=== PATIENT | male | born 1950 | race Caucasian/White ===

== ENCOUNTER 2022-02-18 20:30 | Emergency (ER) | payer MEDICARE ==
[2022-02-18] MEDS ORDERED: BACITRACIN OINT 1 EACH PACKET TOPICAL ONE (21:37)
--- NOTE | 2022-02-18 22:11 | CT ---
EXAMINATION TYPE: CT brain cspine wo con CT DLP: 1416.6 mGycm, Automated exposure control for dose reduction was used. DATE OF EXAM: 02/18/2022 10:01 PM COMPARISON: None.. CLINICAL INDICATION:Male, 71 years old with history of head injury s/p fall; Head injury, pt fall, no LOC TECHNIQUE: Brain: Multiple axial CT images of the brain were obtained without IV contrast. Cspine: Axial CT images from the skull base to the inferior aspect of T2 we obtained without intraven ous contrast. Coronal and sagittal reformatted images were also reviewed. FINDINGS: Brain: Extra-axial spaces: No abnormal extra-axial fluid collections. Ventricular system: Within normal limits Cerebral parenchyma: No acute intraparenchymal hemorrhage or mass effect. The osullivan-white junction is well differentiated. Cerebellum: Unremarkable. Mass effect: No evidence of midline shift. Intracranial vasculature: Atherosclerotic calcifications of the intracranial vessels. Soft tissues: Right frontal soft tissue edema/hematoma measuring up to 35 x 5 mm. Calvarium/osseous structures: No depressed skull fracture. Paranasal sinuses and mastoid air cells: Mild scattered mucosal thickening and or secretions. Visualized orbits: Right aphakia Cervical spine: Fracture: None. Osseous structures: Multilevel degenerative disc disease changes with endplate spurring and disc oste ophyte complex's. Vertebral alignment: Within normal limits. Spinal canal/Neural Foramina: No evidence of significant spinal canal narrowing. Facet joint uncovert ebral joint arthropathy scattered throughout the cervical spine with varying degrees of neural forami nal stenosis. Neck soft tissues: Prevertebral soft tissues are within normal limits. Other: The airway is patent. The lung apices are clear. Calcification of the nuchal ligament is prese nt. Atherosclerosis of the internal carotid arteries. IMPRESSION: 1. No acute intracranial process. 2. Right frontal soft tissue hematoma/edema. 3. No evidence of cervical spine fracture. 4. Moderate multilevel degenerative disc disease. 5. Atherosclerosis of the internal carotid arteries.
[2022-02-18 22:20] VITALS: BP 153/70; PULSE 75; RESP 15; TEMP 98.2
--- NOTE | 2022-02-18 22:35 | ED ---
General Adult HPI - General Chief complaint: Head Injury Stated complaint: Fell,Head Injury Time Seen by Provider: 02/18/22 21:09 Source: patient, family, RN notes reviewed Mode of arrival: wheelchair Limitations: no limitations - History of Present Illness Initial comments: 71-year-old male presents to the emergency department for evaluation of head in jury status post slip and fall. Patient states he was exiting his house onto his deck when he slipped going down 4 steps striking his head on concrete. Patient denies any loss of consciousness. States he was able to get himself up off the ground. expresses concern due to the size of the hematoma on his forehead. Patient reports a history of Parkinson's disease which does affect his gait and coordination; states she suspects his fall with the results of this. He denies any further injuries this time. No dizziness, headache, blurry vision, chest pain, rib pain, shortness of breath, abdominal pain, back pain, hip pain, or leg pain. - Related Data Home Medications Medication Instructions Recorded Confirmed Budesonide/Formoterol Fumarate 1 puff INHALATION RT-DAILY 10/20/17 10/26/17 [Symbicort 80-4.5 Mcg Inhaler] Carbidopa-Levodopa ER 50-200Mg 1 tab PO BID 10/20/17 10/26/17 [Sinemet ER 50-200] Cholecalciferol (Vitamin D3) 2,000 unit PO DAILY 10/20/17 10/26/17 [Vitamin D3] Fluticasone Nasal [place] [Flonase 2 spr EA NOSTRIL DAILY PRN 10/20/17 10/26/17 Nasal [place]] Loratadine [Claritin] 10 mg PO DAILY 10/20/17 10/26/17 [place]-3 Fatty Acids [[place]-3] 1,000 mg PO DAILY 10/20/17 10/26/17 amLODIPine BESYLATE/BENAZEPRIL 1 cap PO DAILY 10/20/17 10/26/17 [amLODIPine BESYLATE/BENAZEPRIL 10-20 mg] amantadine HCL [Symmetrel] 100 mg PO BID 10/20/17 10/26/17 Previous Rx's Medication Instructions Recorded Aspirin 325 mg PO BID #60 tab 10/27/17 Docusate [Colace] 100 mg PO DAILY #30 capsule 10/27/17 Famotidine [Pepcid] 20 mg PO DAILY #30 tablet 10/27/17 HYDROcodone/APAP 7.5-325MG [[place] 1 each PO Q6HR PRN #40 tab 10/27/17 7.5] traMADol HCl [Ultram] 50 mg PO Q6H PRN #40 tab 10/27/17 Allergies Allergy/AdvReac Type Severity Reaction Status Date / Time No Known Allergies Allergy Verified 02/18/22 20:37 Review of Systems ROS Statement: Those systems with pertinent positive or pertinent negative responses have been documented in the HPI. ROS Other: All systems not noted in ROS Statement are negative. Past Medical History Past Medical History: COPD, Hypertension, Neurologic Disorder, Osteoarthritis (OA) Additional Past Medical History / Comment(s): Parkinson's-tremors left side History of Any Multi-Drug Resistant Organisms: None Reported Past Surgical History: Orthopedic Surgery Additional Past Surgical History / Comment(s): arthroscopy knee,colonoscopies, TOTAL RIGHT KNEE ARTHROPLASTY Past Anesthesia/Blood Transfusion Reactions: No Reported Reaction Past Psychological History: No Psychological Hx Reported Smoking Status: Never smoker Past Alcohol Use History: Occasional Past Drug Use History: None Reported - Past Family History Father Family Medical History: Cancer General Exam Limitations: no limitations (Well-developed, well-nourished male in no acute distress. Initial temperature 98.6, pulse 83, respirations 18, blood pressure 158/84, pulse ox 98% on room air.) General appearance: alert, in no apparent distress Expanded Head exam: Present: abrasion (Superficial abrasion over the right frontal area.Cleansed prior to arrival.), hematoma (Hematoma on the right frontal/ parietal portion of the scalp. Spouse applied ice prior to arrival and reports significant reduction in size.). Absent: raccoon eyes, nicolas's sign Eye exam: Present: normal appearance, PERRL, EOMI. Absent: scleral icterus, conjunctival injection, periorbital swelling, periorbital tenderness Pupils: Present: normal accommodation Neck exam: Present: normal inspection, full ROM. Absent: tenderness, meningismus, lymphadenopathy Respiratory exam: Present: normal lung sounds bilaterally. Absent: respiratory distress, wheezes, rales, rhonchi, stridor, chest wall tenderness Cardiovascular Exam: Present: regular rate, normal rhythm, normal heart sounds. Absent: systolic murmur, diastolic murmur, rubs, gallop, clicks GI/Abdominal exam: Present: soft, normal bowel sounds. Absent: distended, tenderness, guarding, rebound, rigid Back exam: Present: normal inspection. Absent: paraspinal tenderness, vertebral tenderness Neurological exam: Present: alert, oriented X3, normal gait Psychiatric exam: Present: normal affect, normal mood Skin exam: Present: warm, dry Course Vital Signs 02/18/22 02/18/22 20:34 22:18 Temperature 98.6 F 98.2 F Pulse Rate 83 75 Respiratory 18 15 Rate Blood Pressure 158/84 153/70 O2 Sat by Pulse 98 95 Oximetry - Reevaluation(s) Reevaluation #1: 02/18/22 22:30 Patient continues to rest comfortably with no complaints at this time. Denies any need for anything for pain. Updated on CT results. Discussed discharge home. Patient is agreeable with this plan of care. Medical Decision Making - Medical Decision Making This is a pleasant 71-year-old male with a past medical history of Parkinson's disease presenting to the emergency department for evaluation of injury to the head status post fall around 7 PM this evening. Upon exam, patient is well- appearing and in no acute distress. He is awake, alert, oriented. He complains of minimal discomfort associated with fall. He does have a hematoma to the right frontal/parietal area of his scalp with a superficial abrasion. Patient's spouse cleansed prior to arrival and applied ice. She states that it size of the hematoma has reduced significantly. He does not take any blood thinning medications. Patient denied experiencing any loss of consciousness. Neurological assessment is baseline for patient. CT of the brain and C-spine was obtained and is unremarkable. Bacitracin was applied to the wound. Results were discussed with patient spouse. They are agreeable with discharge home to follow up with primary care as needed. Return parameters were discussed in detail. Patient and spouse verbalized understanding and agreed with this plan. Attending: Talita - Radiology Data Radiology results: report reviewed, image reviewed CT of the brain and C-spine without contrast was obtained. Report was reviewed in its entirety. Impression per Dr. Gupta is #1 no acute intracranial process. #2 right frontal soft tissue hematoma/edema. #3. No evidence of cervical spine fracture. #4. Moderate multilevel degenerative disc disease. #5. Atherosclerosis of the internal carotid arteries. Disposition Clinical Impression: Scalp hematoma, Scalp abrasion, non-infected, Fall Disposition: HOME SELF-CARE Condition: Stable Instructions (If sedation given, give patient instructions): Head Injury (ED), Abrasion (ED), Hematoma (ED) Additional Instructions: Apply Bacitracin to wound after gentle cleansing with mild soap and water once daily. Follow-up with your PCP for recheck in the next 1-2 days. Return to the emergency department with any new, worsening, or concerning symptoms. Is patient prescribed a controlled substance at d/c from ED?: No Referrals: Calvin Roca MD [Primary Care Provider] - 1-2 days Time of Disposition: 22:35
== END 2022-02-18 22:39 | disposition home or self-care (01) ==
LOC: EC 20:30
DX: S00.03XA Contusion of scalp, initial encounter (principal); S00.01XA Abrasion of scalp, initial encounter; J44.9 Chronic obstructive pulmonary disease, unspecified; I10 Essential (primary) hypertension; W01.0XXA Fall on same level from slipping, tripping and stumbling without subsequent striking against object, initial encounter; Y93.39 Activity, other involving climbing, rappelling and jumping off
CPT/HCPCS: 70450; 72125; 99283

== ENCOUNTER → 2022-06-20 | Outpatient (CLI) | payer MEDICARE | END | disposition home or self-care (01) | LOC: LABWHC1 15:52 | PROVIDERS: ATTEND Orthopaedic Surgery | DX: Z01.812 Encounter for preprocedural laboratory examination (principal); Z22.322 Carrier or suspected carrier of Methicillin resistant Staphylococcus aureus; M16.12 Unilateral primary osteoarthritis, left hip | CPT/HCPCS: 87070 ==

== ENCOUNTER 2022-06-30 10:50 | Day surgery (SDC) | payer MEDICARE ==
[2022-06-25 11:45] VITALS: BMI 20.9
--- NOTE | 2022-06-29 10:38 | HP ---
HISTORY AND PHYSICAL DATE OF SURGERY: 06/30/2022 Michael Estrella is a 71-year-old patient seen with symptomatic left hip osteoarthritis. We discussed options for treatment. He elected to proceed with left total hip arthroplasty. Consent was obtained. Medical clearance was provided by Dr. Calvin Roca. PAST MEDICAL HISTORY: Hypertension, asthma, COPD, Parkinson's. SURGICAL HISTORY: Knee arthroscopy. DAILY MEDICATIONS: Loratadine, amlodipine, levodopa, vitamins. ALLERGIES: NONE. SOCIAL HISTORY: He denies tobacco use. PHYSICAL EVALUATION OF THE LEFT HIP: There is very limited rotation with severe pain and diffuse tenderness. Positive hip impingement sign. Straight-leg raise negative. Distal neurovascular exam is intact. Radiographs of the left hip revealed severe osteoarthritic changes. IMPRESSION: 1. Left hip osteoarthritis. 2. Hypertension. 3. Parkinson's. PLAN: Direct anterior left total hip arthroplasty. MMODL / IJN: [id number] /
[~2022-06-30 10:50] MED LIST: ACETAMINOPHEN TAB 500 MG TAB PO PRN; LIDOCAINE 1% (10MG/ML) FOR IV START INTRADERMA PRN; MELOXICAM 7.5 MG TAB PO PRN; ONDANSETRON 4 MG/2 ML VIAL IVP ONE; TRANEXAMIC ACID IN NACL,ISO-OS 1,000 MG in SALINE 1 100ML.BAG IVPB PRN
[2022-06-30] MEDS: LACTATED RINGERS 1,000 ML IV SCH ×2 (11:39→17:25)
[2022-06-30] MEDS ORDERED: DEXAMETHASONE SOD PHOSPHATE 4 MG/ML 1 ML VIAL IV ONE (11:52)
[2022-06-30] MEDS ORDERED: MIDAZOLAM 2 MG/2 ML VIAL IV ONE (12:04)
[2022-06-30] MEDS ORDERED: fentaNYL (PF) 50 MCG/ML 2 ML AMP IV ONE (12:04)
--- NOTE | 2022-06-30 13:11 | P.ANPRN ---
Procedure Note - Anesthesia - Nerve Block Performed Left Erector Spinae Single Time Out Performed: Yes (1203) Date of Procedure: 06/30/22 Procedure Start Time: 12:04 Procedure Stop Time: 12:11 Location of Patient: PreOp Indication: Acute Post-Operative Pain, Requested by Surgeon Specifically requested for management of pain by : Washington Hines Sedation Type: Sedate with meaningful contact maintained Preparation: Sterile Prep Position: Sitting Catheter: None Needle Types: Pajunk Needle Gauge: 21 Ultrasound used to visualize needle placement: Yes Ultrasound used to observe medication spread: Yes Injectate: 0.5% Ropivacaine (see comment for volume) (30cc) Blood Aspirated: No Pain Paresthesia on Injection Noted: No Resistance on Injection: Normal Image Stored and Saved: Yes Events: Uneventful and Well Tolerated
--- NOTE | 2022-06-30 14:17 | P.OP ---
Date of Procedure: 06/30/22 Preoperative Diagnosis: Left hip osteoarthritis Postoperative Diagnosis: Left hip osteoarthritis Procedure(s) Performed: Direct anterior left total hip arthroplasty Implants: 1. Depuy Corail KLA size 12 high offset collar press-fit femoral stem 2. Depuy [place] 54 mm press-fit acetabular shell 3. Depuy [place]dermitt neutral-acetabular liner 36 mm ID 54 mm OD 4. Biolox Delta ceramic femoral head +1.5 36 mm Anesthesia: regional (Erector spinae block), spinal Surgeon: Washington Hines Butter Wrapper #1: Paul Jordan Estimated Blood Loss (ml): 110 Pathology: other (Femoral head) Condition: stable Disposition: PACU Indications for Procedure: 71-year-old patient seen with symptomatic left hip osteoarthritis. After treatment options were discussed, he elected to proceed with direct anterior left total hip arthroplasty. Operative Findings: See description of procedure Description of Procedure: The patient was taken to the operative suite after having an erector spinae block performed by the department of anesthesia for postoperative pain management. Patient underwent a spinal anesthetic by the department of anesthesia. Patient was then transferred to the [place] table. Patient was given preoperative IV antibiotics and TXA. Both lower extremities were placed in standard leg spars. The hip was then prepped and draped in the normal sterile orthopedic fashion. A standard anterior incision was made beginning 3 cm lateral and 1 cm distal to the ASIS extending 10 cm. Dissection was then carried down through the subcutaneous soft tissues down to the fascia overlying the tensor fascia silvana. An incision was now made through the fascia. Careful dissection was taken down exposing the tensor fascia silvana muscle. A Cobra retractor was now placed along the medial femoral neck and a second one along the lateral femoral neck. The venous circumflex vessels were now identified, cauterized and clipped. We identified the anterior hip capsule. An incision was made through the hip capsule along the lateral border. I performed a partial anterior capsulectomy. Retractors were now placed around the femoral neck itself. A femoral neck cut was now made with a sagittal saw. It was completed with an osteotome at the lateral neck area. The femoral head was now removed without difficulty. The extremity was now rotated to 60 of external rotation. It was locked in position. Residual labrum was now debrided out. Serial reaming was performed of the acetabulum while Jose Martin PRECIADO assisted holding an anterior retractor for exposure. Once we reached the appropriate size and a trial was position and fit nicely. The appropriate size was now chosen opened and made available. It was introduced into the acetabulum without difficulty. The C-arm/fluoroscopy was now brought into the operative field. We made sure we had a true AP pelvic view. We now under direct C-arm/fluoroscopy introduced into the acetabular component with appropriate version and in clination. I held the cup in appropriate position well Jose Martin PRECIADO used a mallet to seat the acetabular component. I noted the component now to be well seated and stable. Acetabular cup introduce her was removed. The C-arm was pulled back. An appropriate liner was introduced and clicked into position. It was felt to be stable. At this point retractors were removed. The extremity was now placed into 130 external rotation with no traction. The leg was now dropped to the ground and adducted. Appropriate retractors were now positioned along the proximal femur. We also placed our femoral look into position. Additional capsular releasing was performed to gain access to the proximal femur. We now used a box osteotome. A canal finder was now utilized. Serial broaching was now performed with the assistance of Jose Martin PRECIADO tapping the broaches down with a mallet while held the broach in appropriate rotation and position. This was done until we reached the appropriate size with good overall rotational stability. Appropriate calcar planing was performed. A trial head/neck was placed into position. The hip was now reduced. The C- arm/fluoroscopy was brought back into the operative field. I obtained an AP pelvis x-ray via fluoroscopy demonstrating adequate leg length alignment. The trial components appeared adequately sized and adequately positioned. The C-arm/fluoroscopy was pulled back. Retractors were repositioned and the hip was dislocated. The leg was again taken down to the ground and adducted. Appropriate retractors were repositioned as well as the femoral hook. All trial components were removed. The femoral implant was opened along with the femoral head. The femoral implant was introduced on the appropriate handle into our pre-broached area. I held the component position well Jose Martin PRECIADO used a mallet to seat the femoral component. The femoral component was now noted to be well seated and stable.. The femoral head was introduced with good positioning and fixation noted. Retractors were now removed. The hip was now reduced. There appeared be good positioning of the hip confirmed on intraoperative fluoroscopy. Spot films were obtained to document this. A second gram of TXA was given. The deep and superficial soft tissues were infiltrated with local analgesic. Bipolar cautery had been utilized intermittently through the procedure for hemostasis. The wound was irrigated copiously with pulse lavage mechanical irrigation. The fascia was repaired with Vicryl suture. The subcutaneous soft tissues were repaired in layers with Vicryl suture. The skin was approximated with pernio/Dermabond. Sterile dressings were applied. Patient was then awakened, transferred to a bed and taken to recovery in stable condition. Jose Martin PRECIADO assisted with the complex procedure.
[2022-06-30] MEDS ORDERED: HYDROcodone/APAP 5-325MG 1 EACH TAB PO PRN (14:18)
[2022-06-30] MEDS ORDERED: NALOXONE 0.4 MG/ML 1 ML VIAL IV PRN (14:18)
[2022-06-30] MEDS ORDERED: ONDANSETRON 4 MG/2 ML VIAL IVP PRN (14:18)
[2022-06-30] MEDS ORDERED: HYDROmorphone 0.5 MG/0.5 ML SYRINGE IVP PRN ×2 (14:18)
--- NOTE | 2022-06-30 14:22 | FL ---
EXAMINATION TYPE: FL guidance operating room, XR Hip Limited LT DATE OF EXAM: 06/30/2022 CLINICAL HISTORY: Left hip pain and advanced osteoarthritis. TECHNIQUE: Fluoroscopy. Limited intraoperative views left hip. COMPARISON: Outside left hip x-ray May 06, 2022 FINDINGS: Fluoroscopic guidance was provided during left hip replacement procedure performed by Dr. Hines. A total of 19 seconds of fluoroscopic time was utilized during the procedure and 2 spot i mages are acquired. Intraoperative images obtained show satisfactory position of metallic prosthesis on frontal projectio n. IMPRESSION: As Above.
[2022-06-30] MEDS: HYDROmorphone 0.5 MG/0.5 ML SYRINGE IVP PRN ×2 (15:01→16:06)
[2022-06-30] MEDS ORDERED: KETOROLAC 15 MG/ML 1 ML VIAL IVP ONE (15:02)
[2022-06-30] MEDS: HYDROcodone/APAP 7.5-325MG 1 EACH TAB PO PRN (17:25)
[2022-06-30] MEDS ORDERED: lisinopriL 10 MG TAB PO SCH (21:00)
[2022-06-30] MEDS ORDERED: amLODIPine 5 MG TAB PO SCH (21:00)
[2022-06-30] MEDS ORDERED: SENNOSIDES-DOCUSATE SODIUM 1 EACH TAB PO SCH (21:00)
[2022-06-30] MEDS: CARBIDOPA-LEVODOPA ER 50-200MG 1 EACH TABLET.ER PO SCH (21:03)
[2022-06-30] MEDS: ENTACAPONE 200 MG TAB PO SCH (21:03)
[2022-07-01] MEDS: HYDROmorphone 0.5 MG/0.5 ML SYRINGE IVP PRN ×2 (01:03→07:45)
[2022-07-01 03:26] VITALS: RESP 18
[2022-07-01] MEDS: HYDROcodone/APAP 7.5-325MG 1 EACH TAB PO PRN ×2 (04:38→11:04)
[2022-07-01] MEDS: LACTATED RINGERS 1,000 ML IV SCH ×2 (04:39→05:39)
[2022-07-01 07:54] VITALS: BP 111/61; PULSE 76; TEMP 97.4
[2022-07-01] MEDS ORDERED: ENOXAPARIN 40 MG/0.4 ML SYRINGE SQ SCH (09:00)
[2022-07-01] MEDS ORDERED: FAMOTIDINE 20 MG TAB PO SCH (09:00)
--- NOTE | 2022-07-01 09:41 | P.CONS ---
History of Present Illness - Reason for Consult Consult date: 07/01/22 parkinsons disease Requesting physician: Washington Hines - Chief Complaint hip pain - History of Present Illness Patient is a 71 yo CM with a hx of HTN, COPD, and parkinsons disease who presented for an elective left total hip arthroplasty. Patient seen and examined at bedside. He is doing well. He is already worked with therapy today. He denies any chest pain, shortness breath, lightheadedness, dizziness. He denies any cough, cold, fever, flu. He does have Parkinson's disease about 2 months ago. He follows with Dr. Mckeon and has had his Sinemet adjusted recently. He does continue to have a resting tremor, masked facies, and slowed response time with difficulty with dysdiadochokinesis. We had a long discussion that he will be at high risk for falls given his Parkinson's recent total hip arthroplasty. He does have grab bars on multiple doorways. I have suggested that he follow up with Dr. Roca as he is unable to get into Dr. Mckeon until 2 months from now. He may needed an extra dose of Sinemet daily. He states now he takes 1 tablet 3 times daily the first day and then takes 1 tablet twice daily the second day and then 2 tablets the last dose of the day. This means that he would be deficient in his Sinemet on alternate days. Could consider adjusting him to taking 1 tablet twice daily and then 2 tablets once daily on a more consistent basis an alternating regimen to every other day. Pertinent positives and negatives as discussed in HPI, a complete review of systems was performed and all other systems are negative. Vital signs reviewed General: nontoxic, no distress, appears at stated age Derm: warm, dry Head: atraumatic, normocephalic, symmetric Eyes: EOMI, no lid lag, anicteric sclera, pupils equal round reactive to light ENT: Nose and ears atraumatic, no thrush, no pharyngeal erythema Neck: No thyromegaly, no cervical lymphadenopathy, trachea midline, supple Mouth: no lip lesion, mucus membranes moist Cardiovascular: S1S2 reg, no murmur, positive posterior tibial pulse bilateral, no edema, capillary refill less than 2 seconds Lungs: clear to auscultation bilateral, no rhonchi, no rales, no wheeze, no accessory muscle use Abdominal: soft, nontender to palpation, no guarding, no appreciable organomegaly, normal bowel sounds Ext: no gross muscle atrophy, muscle strength muscle strength 5 out of 5 in all 4 extremities, no contractures Neuro: CN II-XII grossly intact, light touch intact all 4 extremities, finger to nose within normal, struggles with dysdiadokinesis on the left, resting tremor on the left, masked facies. Psych: Alert, oriented, appropriate affect Assessment/Plan: 71 yo M s/p Left TWILA Parkinsons Disease - fall precautions - sinement - entacapone COPD without exacerbation - symbicort - prn bronchdilators HTN - controlled - continue amlodipine and benzapril Medically optimized for discharge, home meds addressed. Thank you for allowing us to participate in the care of this pleasant patient. Do not hesitate to contact us with questions. Someone can be reached from the [facility] hospitalist group all hours of the day at [phone] or via [employer]. Past Medical History Past Medical History: COPD, Hearing Disorder / Deafness, Hypertension, Neurologic Disorder, Osteoarthritis (OA) Additional Past Medical History / Comment(s): Hard of hearing. Parkinson's- tremors left side. History of Any Multi-Drug Resistant Organisms: None Reported Past Surgical History: Joint Replacement, Orthopedic Surgery Additional Past Surgical History / Comment(s): Right knee arthroscopy, colonoscopies, total right knee replacement. Past Anesthesia/Blood Transfusion Reactions: No Reported Reaction Past Psychological History: No Psychological Hx Reported Smoking Status: Never smoker Past Alcohol Use History: Occasional Additional Past Alcohol Use History / Comment(s): 1 alcoholic drink per week. Past Drug Use History: None Reported - Past Family History Father Family Medical History: Cancer Medications and Allergies Home Medications Medication Instructions Recorded Confirmed Type Budesonide/Formoterol Fumarate 1 puff INHALATION 10/20/17 06/30/22 History [Symbicort 80-4.5 Mcg Inhaler] Carbidopa-Levodopa ER 50-200Mg 1 tab PO TID 10/20/17 06/30/22 History [Sinemet ER 50-200] Cholecalciferol (Vitamin D3) 2,000 unit PO DAILY 10/20/17 06/30/22 History [Vitamin D3] Fluticasone Nasal [place] [Flonase 2 spr EA NOSTRIL HS 10/20/17 06/30/22 History Nasal [place]] Loratadine [Claritin] 10 mg PO DAILY 10/20/17 06/30/22 History amantadine HCL [Symmetrel] 100 mg PO BID 10/20/17 06/30/22 History traMADol HCl [Ultram] 50 mg PO Q6H PRN #40 tab 10/27/17 06/30/22 Rx Acetaminophen Tab [Tylenol Tab] 500 - 1,000 mg PO DIRECTED PRN 06/25/22 06/30/22 History Entacapone 200 mg PO TID 06/25/22 06/30/22 History Thiamine [Vitamin B-1] 2,000 mg PO DAILY 06/25/22 06/30/22 History amLODIPine BESYLATE/BENAZEPRIL 1 cap PO HS 06/25/22 06/30/22 History [amLODIPine BESYLATE/BENAZEPRIL 5-10 mg] Allergies Allergy/AdvReac Type Severity Reaction Status Date / Time No Known Allergies Allergy Verified 06/30/22 11:09 Physical Exam Osteopathic Statement: *. No significant issues noted on an osteopathic structural exam other than those noted in the History and Physical/Consult. Vitals: Vital Signs Temp Pulse Pulse Resp BP Pulse Ox 07/01/22 07:52 97.4 F L 76 18 111/61 97 07/01/22 02:40 98.1 F 77 18 116/64 98 06/30/22 20:25 79 115/64 94 L 06/30/22 20:00 79 16 06/30/22 19:10 80 106/57 99 06/30/22 18:55 78 125/68 99 06/30/22 18:40 73 101/46 99 06/30/22 18:25 83 130/69 98 06/30/22 17:24 97.7 F 64 16 130/54 100 06/30/22 16:30 64 16 160/70 100 06/30/22 16:00 66 16 160/72 06/30/22 15:25 61 64 H 151/67 66 L 06/30/22 15:10 72 16 135/60 06/30/22 14:55 61 16 118/56 100 06/30/22 14:40 62 16 105/55 100 06/30/22 14:26 97.6 F 70 14 143/65 97 06/30/22 12:17 83 16 148/67 100 06/30/22 11:31 88 16 142/81 98 Intake and Output 06/30/22 07/01/22 07/01/22 22:59 06:59 14:59 Intake Total 500 Balance 500 Intake: IV 500 Other: Voiding Method Toilet # Voids 1 1 Weight 61.4 kg
[2022-07-01] MEDS: ENTACAPONE 200 MG TAB PO SCH (09:57)
[2022-07-01] MEDS: CARBIDOPA-LEVODOPA ER 50-200MG 1 EACH TABLET.ER PO SCH (09:57)
[2022-07-01 10:32] LABS: Basophils # (A) 0.01 X 10*3/uL (0.00-0.10); Basophils % (A) 0.2 %; Eosinophils # (A) 0.05 X 10*3/uL (0.04-0.35); Eosinophils % (A) 1.1 %; HCT 32.5 % (39.6-50.0); HGB 10.5 g/dL (13.0-17.0); Immature Grans, Automated 0.4 %; Lymphocytes # (A) 0.74 X 10*3/uL (0.90-5.00); Lymphocytes % (A) 16.3 %; MCHC 32.3 g/dL (32.0-37.0); MCV 92.9 fL (80.0-97.0); Mean Platelet Volume 9.3 fL (9.5-12.2); Monocytes # (A) 0.33 X 10*3/uL (0.20-1.00); Monocytes % (A) 7.3 %; NRBC Per 100 WBC 0 /100 WBCS (0.0-0.0); Neutrophils # (A) 3.38 X 10*3/uL (1.80-7.70); Neutrophils % (A) 74.7 %; Platelet Count 209 X 10*3/uL (140-440); RDW 12.3 % (11.5-14.5); WBC 4.53 X 10*3/uL (4.50-10.00)
--- NOTE | 2022-07-01 10:34 | P.PN ---
Subjective Progress Note Date: 07/01/22 Principal diagnosis: Status post direct anterior total hip arthroplasty Patient was evaluated at bedside today, he is resting in his hospital chair. Patient ambulating with physical therapy utilizing a walker. He states improvement in his overall symptoms of the left hip. He does have some generalized soreness. He denies any headaches, lightheadedness, shortness of breath, chest pain. He is urinating with no difficulties at this time Objective - Vital Signs Vital signs: Vital Signs Temp 97.4 F L 07/01/22 07:52 Pulse 76 07/01/22 07:52 Resp 18 07/01/22 07:52 BP 111/61 07/01/22 07:52 Pulse Ox 97 07/01/22 07:52 FiO2 Intake & Output 06/30/22 07/01/22 07/01/22 18:59 06:59 18:59 Intake Total 750 Output Total 110 Balance 640 Weight 61.4 kg Intake: IV 750 Output: Estimated Blood Loss 110 Other: Voiding Method Toilet # Voids 1 - Exam Left lower extremity: Incision is clean, dry, and intact. The foam dressings in good condition. [Sherrell is minimal soft tissue swelling and ecchymosis surrounding the medial and lateral aspects of the incision.] Calf is soft, no tenderness with palpation. Plantar flexion, dorsiflexion, EHL, FHL are intact. Sensory exam to light touch throughout the extremity is intact, [drsal pedis pulses 2+.] Assessment and Plan Assessment: Postoperative day #1 status post right anterior left total hip arthroplasty Plan: Pain control, plan for discharge home on [place] 7.5 mg/325 mg. Patient also has tramadol 50 mg at home. DVT prophylaxis, aspirin 81 mg twice a day for 30 days Wound care was discussed, this will include icing and elevating techniques along with showering Home physical therapy and nursing after discharge, instructed patient to utilize walker at all times with ambulation Medical recommendations Discharge planning: Patient stable for discharge home today Time with Patient: Less than 30
--- NOTE | 2022-07-01 10:34 | P.DS ---
Providers Date of admission: 06/30/2022 Expected date of discharge: 07/01/22 Attending physician: Washington Hines Consults: 06/30/22 14:18 Consult Physician Routine Consulting Provider: Puja De Luna Consult Reason/Comments: Medical management Do you want consulting provider notified?: Yes Primary care physician: Calvin Park [facility] Course: Date of admission: 06/30/2022 Date of discharge: 07/01/2022 Admission diagnosis: Status post direct anterior left total hip arthroplasty Discharge diagnosis: Same Attending physician: Dr. Hines Surgical procedures: Direct anterior left total hip arthroplasty Brief history: Patient is a 71-year-old male with a history of progressive primary left hip osteoarthritis. At this point patient has failed conservative treatment measures and has opted to proceed with a elective direct anterior left total hip arthroplasty. Hospital course: Details of patient's surgery can be found in operative report. Patient tolerated the procedure well and was subsequently transported to orthopedic floor. Patient's orthopeidc and medical care was provided daily. Patient had daily laboratory tests performed for evaluation of overall blood counts. Patient had daily physical therapy to include strengthening range of motion as well as education with walker ambulation. Patient was treated with Lovenox for their postoperative DVT prophylaxis during their inpatient stay. Patient was noted to have a relatively uneventful postoperative course. Patient reported satisfactory pain control with oral pain medications by postoperative day 0. Patient showed satisfactory progress with physical therapy. Patient moved steadily through the program and had no difficulty meeting the goals by postoperative day 1. Given patient's otherwise satisfactory course and having met physical therapy goals, plan is to discharge patient home on postoperative day 1. Discharge condition/disposition: Patient will be discharged home in stable c ondition. Discharge medications: Instructions are given on resumption of patient's normal daily medications per primary care recommendation, in addition patient will be prescribed [place] 7.5 mg/325 mg, aspirin. Discharge instructions: 1. Wound care and infection precautions, keep incision dry and covered while showering, no lotions, creams, moisturizers. No soaking, tubs, pools, hottubs. Do not scrub over the incision. 2. Weight-bear as tolerated with walker / cane until follow-up. 3. Ice and elevate when necessary. Do not exceed 20 minutes per hour with ice pack. 4. Utilize compression sleeve until seen at first follow up appointment. 5. Visiting nursing care. 6. Home physical therapy. 7. Pain meds and anticoagulants per prescription. 8. Pain medication has potential to cause constipation. Increase oral fluid and fiber intake. Contact primary care provider if you have not had a bowel movement within 48 hours after discharge 9. No anti-inflammatory medication until discussed at first post operative visit, this including Motrin, Aleve, Mobic, Diclofenac. 10. Follow up in office at 2 weeks postop with Jose Martin Jordan PA-C/Jignesh Medrano 11. Follow up with your primary care doctor 7-10 days after discharge. 12. Contact [facility] with any questions, . Procedures: Direct anterior left total hip arthroplasty Patient Condition at Discharge: Good Plan - Discharge Summary Discharge Rx Participant: No New Discharge Prescriptions: New Aspirin [Adult Low Dose Aspirin EC] 81 mg PO BID #60 tab HYDROcodone/APAP 7.5-325MG [[place] 7.5] 1 each PO Q6HR PRN #28 tab PRN Reason: Pain Continue Fluticasone Nasal Pike [Flonase Nasal Pike] 2 spr EA NOSTRIL HS Carbidopa-Levodopa ER 50-200Mg [Sinemet CR 50-200 mg] 1 tab PO TID Loratadine [Claritin] 10 mg PO DAILY amantadine HCL [Symmetrel] 100 mg PO BID Cholecalciferol (Vitamin D3) [Vitamin D3] 2,000 unit PO DAILY Budesonide/Formoterol Fumarate [Symbicort 80-4.5 Mcg Inhaler] 1 puff INHALATION HS amLODIPine BESYLATE/BENAZEPRIL [amLODIPine BESYLATE/BENAZEPRIL 5-10 mg] 1 cap PO HS Thiamine [Vitamin B-1] 2,000 mg PO DAILY Entacapone 200 mg PO TID No Action traMADol HCl [Ultram] 50 mg PO Q6H PRN #40 tab PRN Reason: Pain Acetaminophen Tab [Tylenol Tab] 500 - 1,000 mg PO DIRECTED PRN PRN Reason: Pain Discharge Medication List Budesonide/Formoterol Fumarate [Symbicort 80-4.5 Mcg Inhaler] 1 puff INHALATION HS 10/20/17 [History] Carbidopa-Levodopa ER 50-200Mg [Sinemet CR 50-200 mg] 1 tab PO TID 10/20/17 [History] Cholecalciferol (Vitamin D3) [Vitamin D3] 2,000 unit PO DAILY 10/20/17 [History] Fluticasone Nasal Pike [Flonase Nasal Pike] 2 spr EA NOSTRIL HS 10/20/17 [History] Loratadine [Claritin] 10 mg PO DAILY 10/20/17 [History] amantadine HCL [Symmetrel] 100 mg PO BID 10/20/17 [History] traMADol HCl [Ultram] 50 mg PO Q6H PRN #40 tab 10/27/17 [Rx] Acetaminophen Tab [Tylenol Tab] 500 - 1,000 mg PO DIRECTED PRN 06/25/22 [History] Entacapone 200 mg PO TID 06/25/22 [History] Thiamine [Vitamin B-1] 2,000 mg PO DAILY 06/25/22 [History] amLODIPine BESYLATE/BENAZEPRIL [amLODIPine BESYLATE/BENAZEPRIL 5-10 mg] 1 cap PO HS 06/25/22 [History] Aspirin [Adult Low Dose Aspirin EC] 81 mg PO BID #60 tab 07/01/22 [Rx] HYDROcodone/APAP 7.5-325MG [[place] 7.5] 1 each PO Q6HR PRN #28 tab 07/01/22 [Rx] Follow up Appointment(s)/Referral(s): Calvin Roca MD [Primary Care Provider] - 1 Week [facility], [NON-STAFF] - As Needed Paul Jordan PAC [PHYSICIAN OFFICE SERVICES ASSISTANT] - 2 Weeks Patient Instructions/Handouts: Total Hip Replacement (DC) Activity/Diet/Wound Care/Special Instructions: Orthopedic Discharge Instructions: 1. Wound care and infection precautions, keep incision dry and covered while showering, no lotions, creams, moisturizers. No soaking, pools, hot tubs. Do not scrub over incision. 2. Weight-bear as tolerated with walker / cane until follow-up. 3. Ice and elevate when necessary. Do not exceed 20 minutes per hour with ice pack. 4. Utilize compression sleeve until seen at first follow up appointment. 5. Pain meds and anticoagulants per prescription. 6. Pain medication has potential to cause constipation. Increase oral fluid and fiber intake. Contact primary care provider if you have not had a bowel movement within 48 hours after discharge. 7. No anti-inflammatory medication until discussed at first post operative visit, this including Motrin, Aleve, Mobic, Diclofenac, Aspirin. 8. Follow up in office at 2 weeks postop with Jose Martin Jordan PA-C / Jignesh Vale PA-C 9. Follow up with your primary care doctor 7-10 days after discharge. 10. Contact [facility] with any questions, . Wound care instructions: 1. Ok to remove bandage on 07/07/2022 2. After removal of bandage, ok to shower directly over incision Discharge Disposition: HOME WITH HOME HEALTH SERVICES
== END 2022-07-01 12:11 | disposition home health service (06) ==
LOC: OR 10:50 → 4SSUR 16:28 → OR 07-01 12:11
PROVIDERS: ATTEND Orthopaedic Surgery
DX: M16.12 Unilateral primary osteoarthritis, left hip (principal); G89.18 Other acute postprocedural pain; I10 Essential (primary) hypertension; J44.9 Chronic obstructive pulmonary disease, unspecified; G20 Parkinson's disease; Z79.51 Long term (current) use of inhaled steroids; Z79.899 Other long term (current) drug therapy; Z79.82 Long term (current) use of aspirin; Z80.9 Family history of malignant neoplasm, unspecified
CPT/HCPCS: 97161; 97165; 64999; 86900; 86901; 85025; 86850; 73501; 36415; 27130; C1776; J2250; J1100; J0690 ×2; J2405; J1650; J3010; J1885; J1170 ×2; 88300

== ENCOUNTER 2023-02-25 15:22 | Inpatient (IN) | payer MEDICARE ==
[2023-02-25 18:15] LABS: Basophils % (A) 0 %; Eosinophils # (A) 0.1 k/uL (0-0.7); Eosinophils % (A) 0 %; HCT 36.1 % (39.0-53.0); HGB 12.1 gm/dL (13.0-17.5); Lymphocytes # (A) 0.2 k/uL (1.0-4.8); Lymphocytes % (A) 1 %; MCH 30.6 pg (25.0-35.0); MCHC 33.5 g/dL (31.0-37.0); MCV 91.4 fL (80.0-100.0); Mean Platelet Volume 7.9; Monocytes # (A) 0.3 k/uL (0-1.0); Monocytes % (A) 1 %; Neutrophils # (A) 20.1 k/uL (1.3-7.7); Neutrophils % (A) 97 %; Platelet Count 361 k/uL (150-450); RBC 3.95 m/uL (4.30-5.90); RDW 13.2 % (11.5-15.5); WBC 20.8 k/uL (3.8-10.6)
--- NOTE | 2023-02-25 18:20 | ED ---
Weakness HPI - General Chief complaint: Weakness Stated complaint: abd swollen Time Seen by Provider: 02/25/23 16:30 Source: patient, family Mode of arrival: wheelchair Limitations: no limitations - History of Present Illness Initial comments: This patient is a 72-year-old man with history of Parkinson's disease and recent urinary tract infection diagnosis. He is brought to have evaluation of worsening of generalized weakness and disorientation. Most of the history comes from the patient's . They had been in [place] and the patient had worsening of generalized weakness. He was seen there and diagnosed with urinary tract infection and has been taking ciprofloxacin for 8 days now. The patient's states that she spent 3 days driving act from [place] with the patient. When the patient had been started on any antibiotics she initially showed some improvement and then over the drive back he has been having increasing weakness and disorientation. They were seen in the clinic today and the physician there had wanted to have a direct admission for the patient but they were not able to do that so they present to have evaluation here. The patient denies pains a little bit of hip pain however he was able to ambulate. There was no trauma. Patient denies dyspnea. He had not noted fevers. MD Complaint: generalized weakness -: days(s) Location: generalized Severity: moderate Consistency: constant Improves with: none Worsens with: exertion Associated Symptoms: confusion - Related Data Home Medications Medication Instructions Recorded Confirmed Carbidopa-Levodopa ER 50-200Mg 1 tab PO TID 10/20/17 02/25/23 [Sinemet CR 50-200 mg] amantadine HCL [Symmetrel] 100 mg PO BID 10/20/17 02/25/23 Entacapone 200 mg PO TID 06/25/22 02/25/23 Previous Rx's Medication Instructions Recorded Atorvastatin [Lipitor] 40 mg PO DAILY tab 03/02/23 Famotidine [Pepcid] 20 mg PO DAILY tab 03/02/23 Tamsulosin [Flomax] 0.4 mg PO PC-BRKFST cap 03/02/23 amLODIPine [Norvasc] 5 mg PO DAILY tab 03/02/23 bisacodyL [Dulcolax] 5 mg PO DAILY PRN tab 03/02/23 Allergies Allergy/AdvReac Type Severity Reaction Status Date / Time No Known Allergies Allergy Verified 03/29/23 17:45 Review of Systems ROS Statement: Those systems with pertinent positive or pertinent negative responses have been documented in the HPI. ROS Other: All systems not noted in ROS Statement are negative. Constitutional: Reports: weakness. Denies: fever Eyes: Denies: vision change Respiratory: Denies: cough, dyspnea Cardiovascular: Denies: chest pain Gastrointestinal: Denies: abdominal pain Genitourinary: Denies: dysuria, frequency Musculoskeletal: Reports: arthralgia (Hip pain). Denies: back pain Neurological: Reports: confusion. Denies: headache, weakness Past Medical History Past Medical History: COPD, Hypertension, Neurologic Disorder, Osteoarthritis (OA) Additional Past Medical History / Comment(s): Parkinson's-tremors left side History of Any Multi-Drug Resistant Organisms: None Reported Past Surgical History: Orthopedic Surgery Additional Past Surgical History / Comment(s): arthroscopy knee,colonoscopies, TOTAL RIGHT KNEE ARTHROPLASTY Past Anesthesia/Blood Transfusion Reactions: No Reported Reaction Past Psychological History: No Psychological Hx Reported Smoking Status: Never smoker Past Alcohol Use History: Occasional Past Drug Use History: None Reported - Past Family History Father Family Medical History: Cancer General Exam Limitations: no limitations General appearance: alert, in no apparent distress Head exam: Present: atraumatic, normocephalic Eye exam: Present: normal appearance. Absent: scleral icterus, conjunctival injection ENT exam: Present: mucous membranes dry Neck exam: Present: normal inspection Respiratory exam: Present: normal lung sounds bilaterally. Absent: respiratory distress, wheezes, rales, rhonchi, stridor Cardiovascular Exam: Present: regular rate, normal rhythm, normal heart sounds. Absent: systolic murmur, diastolic murmur, rubs, gallop GI/Abdominal exam: Present: soft, guarding, other (There is suprapubic fullness and guarding, suspects urinary retention). Absent: distended, tenderness, rebound, rigid, mass Extremities exam: Present: normal capillary refill, pedal edema (The patient does have right leg edema greater than left). Absent: calf tenderness Back exam: Present: normal inspection. Absent: CVA tenderness (R), CVA tenderness (L), vertebral tenderness Neurological exam: Present: alert, CN II-XII intact. Absent: oriented X3 (Oriented to person and realizes he is in hospital could not state the date), motor sensory deficit Skin exam: Present: warm, dry, intact, normal color. Absent: rash Course Vital Signs 02/25/23 02/25/23 02/25/23 15:27 20:32 21:00 Temperature 98.2 F 96.7 F L Pulse Rate 78 92 98 Respiratory 22 18 18 Rate Blood Pressure 111/41 125/64 124/60 O2 Sat by Pulse 98 98 98 Oximetry 02/25/23 02/26/23 02/26/23 23:00 01:24 01:30 Temperature Pulse Rate 103 H 99 Respiratory 18 21 16 Rate Blood Pressure 100/83 124/58 124/58 O2 Sat by Pulse 97 96 Oximetry 02/26/23 02/26/23 02/26/23 01:40 02:00 02:30 Temperature Pulse Rate 102 H 97 98 Respiratory 20 16 18 Rate Blood Pressure 133/63 132/73 O2 Sat by Pulse Oximetry 02/26/23 03:00 Temperature Pulse Rate 97 Respiratory 20 Rate Blood Pressure 128/84 O2 Sat by Pulse Oximetry EKG Findings - EKG Results: EKG: interpreted by [facility]EMI, sinus rhythm (With sinus arrhythmia, rate 86 bpm), normal axis Procedures - Sepsis Sepsis Focused Exam #1 Sepsis Focused Exam Complete: Yes Vital Signs & RN Notes Reviewed: Yes Capillary Refill: < 2 Seconds: Fingers Peripheral Pulses: Normal: Radial (R) Skin Color: Flushed Respiratory Exam: normal lung sounds Cardiovascular Exam: regular rate, normal rhythm, normal heart sounds Medical Decision Making - Medical Decision Making Patient is 72-year-old man here with history of recent urinary tract infection and generalized weakness associated with some mental status changes. From the exam it does appear there is urinary retention. The bladder scan confirms this. Trivedi catheter is placed which was drained in 2 aliquots a total of 1800 amounts of urine. Following this, the patient's abdominal exam did improve. There is no tenderness or guarding. The patient's workup does reveal what looks like acute renal failure, suspect due to obstructive uropathy. Patient will be admitted. Case discussed with the admitting physician and the patient is given dose of Rocephin for urinary tract infection. Fluid bolus for suspected sepsis. Patient given hyperkalemia medications. Repeat labs are ordered to determine placement the patient. Was pt. sent in by a medical professional or institution (, PA, MANAGER OF WAREHOUSE, urgent care, hospital, or custodial...) When possible be specific @ -[No] Did you speak to anyone other than the patient for history (EMS, parent, family, police, friend...)? What history was obtained from this source @ -[Family Did you review nursing and triage notes (agree or disagree)? Why? @ -[I reviewed and agree with nursing and triage notes] Were old charts reviewed (outside hosp., previous admission, EMS record, old EKG, old radiological studies, urgent care reports/EKG's, custodial records)? Report findings @ -[No old charts were reviewed] Differential Diagnosis (chest pain, altered mental status, abdominal pain women, abdominal pain men, vaginal bleeding, weakness, fever, dyspnea, syncope, headache, dizziness, GI bleed, back pain, seizure, CVA, palpatations, mental health, musculoskeletal)? @ -[Differential Altered Mental Status: Hypoglycemia, DKA, hypercapnia, ETOH, overdose, CO poisoning, trauma, myxedema coma, HTN encephalopathy, infection, encephalitis, psychosis, intercranial h emorrhage, hepatic encephalopathy, meningitis, CVA, this is not meant to be an all-inclusive list EKG interpreted by me (3pts min.). @ -[As above] X-rays interpreted by me (1pt min.). @ -[As above CT interpreted by me (1pt min.). @ -[None done] U/S interpreted by me (1pt. min.). @ -[None done] What testing was considered but not performed or refused? (CT, X-rays, U/S, labs)? Why? @ -[None] What meds were considered but not given or refused? Why? @ -[None] Did you discuss the management of the patient with other professionals (professionals i.e. , PA, MANAGER OF WAREHOUSE, lab, RT, psych nurse, director of social work, cupola tender, teacher, building drafting officer, spring encaser)? Give summary @ -[Case discussed with admitting physician Was smoking cessation discussed for >3mins.? @ -[No] Was critical care preformed (if so, how long)? @ -[Yes 40 minutes Were there social determinants of health that impacted care today? How? (Homelessness, low income, unemployed, alcoholism, drug addiction, transportation, low edu. Level, literacy, decrease access to med. care, fdc, rehab)? @ -[No] Was there de-escalation of care discussed even if they declined (Discuss DNR or withdrawal of care, Hospice)? DNR status @ -[No] What co-morbidities impacted this encounter? (DM, HTN, Smoking, COPD, CAD, Ca ncer, CVA, ARF, Chemo, Hep., AIDS, mental health diagnosis, sleep apnea, morbid obesity)? @ -[None] Was patient admitted / discharged? Hospital course, mention meds given and route, prescriptions, significant lab abnormalities, going to OR and other pertinent info. @ -[Patient admitted to have further medical therapy as well as consultations with nephrology, urology Undiagnosed new problem with uncertain prognosis? @ -[No] Drug Therapy requiring intensive monitoring for toxicity (Heparin, Nitro, Insulin, Cardizem)? @ -[No] Were any procedures done? @ -[No] Diagnosis/symptom? @ -[1. Acute altered mental status 2. Acute obstructive uropathy 3. Acute kidney failure suspected secondary to #2 4. Acute hyperkalemia secondary to #3 5. Possible sepsis 6 urinary tract infection Acute, or Chronic, or Acute on Chronic? @ -Acute Uncomplicated (without systemic symptoms) or Complicated (systemic symptoms)? @ -[Complicated Side effects of treatment? @ -[No] Exacerbation, Progression, or Severe Exacerbation? @ -[No] Poses a threat to life or bodily function? How? (Chest pain, USA, IA, pneumonia, PE, COPD, DKA, ARF, appy, cholecystitis, CVA, Diverticulitis, Homicidal, Suicidal, threat to staff... and all critical care pts) @ -[Yes - Lab Data Result diagrams: 03/01/23 08:09 03/02/23 09:08 Lab Results 02/25/23 02/25/23 02/25/23 Range/Units 17:37 17:37 17:37 WBC 20.8 H (3.8-10.6) k/uL RBC 3.95 L (4.30-5.90) m/uL Hgb 12.1 L (13.0-17.5) gm/dL Hct 36.1 L (39.0-53.0) % MCV 91.4 (80.0-100.0) fL MCH 30.6 (25.0-35.0) pg MCHC 33.5 (31.0-37.0) g/dL RDW 13.2 (11.5-15.5) % Plt Count 361 (150-450) k/uL MPV 7.9 Neutrophils % 97 % Lymphocytes % 1 % Monocytes % 1 % Eosinophils % 0 % Basophils % 0 % Neutrophils # 20.1 H (1.3-7.7) k/uL Lymphocytes # 0.2 L (1.0-4.8) k/uL Monocytes # 0.3 (0-1.0) k/uL Eosinophils # 0.1 (0-0.7) k/uL Basophils # 0.0 (0-0.2) k/uL Sodium 140 (137-145) mmol/L Potassium 7.1 H* (3.5-5.1) mmol/L Chloride 109 H (98-107) mmol/L Carbon Dioxide 12 L (22-30) mmol/L Anion Gap 19 mmol/L BUN 207 H* (9-20) mg/dL Creatinine 15.10 H* (0.66-1.25) mg/dL Est GFR (CKD-EPI)AfAm 3 (>60 ml/min/1.73 sqM) Est GFR (CKD-EPI)NonAf 3 (>60 ml/min/1.73 sqM) Glucose 108 H (74-99) mg/dL Plasma Lactic Acid Saman (0.7-2.0) mmol/L Calcium 9.2 (8.4-10.2) mg/dL Total Bilirubin 0.7 (0.2-1.3) mg/dL AST 20 (17-59) U/L ALT 10 (4-49) U/L Alkaline Phosphatase 99 (38-126) U/L Ammonia (<30) umol/L Troponin I (0.000-0.034) ng/mL Total Protein 6.8 (6.3-8.2) g/dL Albumin 3.6 (3.5-5.0) g/dL Urine Color Yellow Urine Appearance Cloudy (Clear) Urine pH 5.0 (5.0-8.0) Ur Specific [place] 1.013 (1.001-1.035) Urine Protein Trace H (Negative) Urine Glucose (UA) Negative (Negative) Urine Ketones Negative (Negative) Urine Blood Large H (Negative) Urine Nitrite Negative (Negative) Urine Bilirubin Negative (Negative) Urine Urobilinogen <2.0 (<2.0) mg/dL Ur Leukocyte Esterase Large H (Negative) Urine RBC 76 H (0-5) /hpf Urine WBC 84 H (0-5) /hpf Urine Mucus Rare H (None) /hpf Coronavirus (PCR) (Not Detectd) 02/25/23 02/25/23 02/25/23 Range/Units 17:37 18:19 22:16 WBC (3.8-10.6) k/uL RBC (4.30-5.90) m/uL Hgb (13.0-17.5) gm/dL Hct (39.0-53.0) % MCV (80.0-100.0) fL MCH (25.0-35.0) pg MCHC (31.0-37.0) g/dL RDW (11.5-15.5) % Plt Count (150-450) k/uL MPV Neutrophils % % Lymphocytes % % Monocytes % % Eosinophils % % Basophils % % Neutrophils # (1.3-7.7) k/uL Lymphocytes # (1.0-4.8) k/uL Monocytes # (0-1.0) k/uL Eosinophils # (0-0.7) k/uL Basophils # (0-0.2) k/uL Sodium (137-145) mmol/L Potassium (3.5-5.1) mmol/L Chloride (98-107) mmol/L Carbon Dioxide (22-30) mmol/L Anion Gap mmol/L BUN (9-20) mg/dL Creatinine (0.66-1.25) mg/dL Est GFR (CKD-EPI)AfAm (>60 ml/min/1.73 sqM) Est GFR (CKD-EPI)NonAf (>60 ml/min/1.73 sqM) Glucose (74-99) mg/dL Plasma Lactic Acid Saman 1.2 (0.7-2.0) mmol/L Calcium (8.4-10.2) mg/dL Total Bilirubin (0.2-1.3) mg/dL AST (17-59) U/L ALT (4-49) U/L Alkaline Phosphatase (38-126) U/L Ammonia 15 (<30) umol/L Troponin I 0.046 H* (0.000-0.034) ng/mL Total Protein (6.3-8.2) g/dL Albumin (3.5-5.0) g/dL Urine Color Urine Appearance (Clear) Urine pH (5.0-8.0) Ur Specific [place] (1.001-1.035) Urine Protein (Negative) Urine Glucose (UA) (Negative) Urine Ketones (Negative) Urine Blood (Negative) Urine Nitrite (Negative) Urine Bilirubin (Negative) Urine Urobilinogen (<2.0) mg/dL Ur Leukocyte Esterase (Negative) Urine RBC (0-5) /hpf Urine WBC (0-5) /hpf Urine Mucus (None) /hpf Coronavirus (PCR) Not Detected (Not Detectd) 02/25/23 02/25/23 02/26/23 Range/Units 23:24 23:24 00:39 WBC 16.4 H (3.8-10.6) k/uL RBC 3.54 L (4.30-5.90) m/uL Hgb 10.8 L (13.0-17.5) gm/dL Hct 32.2 L (39.0-53.0) % MCV 91.0 (80.0-100.0) fL MCH 30.5 (25.0-35.0) pg MCHC 33.5 (31.0-37.0) g/dL RDW 13.1 (11.5-15.5) % Plt Count 299 (150-450) k/uL MPV 7.8 Neutrophils % 94 % Lymphocytes % 1 % Monocytes % 3 % Eosinophils % 0 % Basophils % 0 % Neutrophils # 15.4 H (1.3-7.7) k/uL Lymphocytes # 0.2 L (1.0-4.8) k/uL Monocytes # 0.5 (0-1.0) k/uL Eosinophils # 0.0 (0-0.7) k/uL Basophils # 0.0 (0-0.2) k/uL Sodium 148 H (137-145) mmol/L Potassium 4.7 (3.5-5.1) mmol/L Chloride 121 H (98-107) mmol/L Carbon Dioxide 14 L (22-30) mmol/L Anion Gap 13 mmol/L BUN 170 H* (9-20) mg/dL Creatinine 10.78 H* (0.66-1.25) mg/dL Est GFR (CKD-EPI)AfAm 5 (>60 ml/min/1.73 sqM) Est GFR (CKD-EPI)NonAf 4 (>60 ml/min/1.73 sqM) Glucose 44 L* (74-99) mg/dL Plasma Lactic Acid Saman (0.7-2.0) mmol/L Calcium 9.1 (8.4-10.2) mg/dL Total Bilirubin 0.6 (0.2-1.3) mg/dL AST 20 (17-59) U/L ALT 10 (4-49) U/L Alkaline Phosphatase 93 (38-126) U/L Ammonia (<30) umol/L Troponin I 0.083 H* (0.000-0.034) ng/mL Total Protein 5.8 L (6.3-8.2) g/dL Albumin 3.0 L (3.5-5.0) g/dL Urine Color Urine Appearance (Clear) Urine pH (5.0-8.0) Ur Specific [place] (1.001-1.035) Urine Protein (Negative) Urine Glucose (UA) (Negative) Urine Ketones (Negative) Urine Blood (Negative) Urine Nitrite (Negative) Urine Bilirubin (Negative) Urine Urobilinogen (<2.0) mg/dL Ur Leukocyte Esterase (Negative) Urine RBC (0-5) /hpf Urine WBC (0-5) /hpf Urine Mucus (None) /hpf Coronavirus (PCR) (Not Detectd) Critical Care Time Critical Care Time: Yes (40 minutes) Disposition Clinical Impression: Acute renal failure, Obstructive uropathy, Hyperkalemia, Urinary tract infection, Altered mental status Disposition: ADMITTED IP TO THIS HOSP Condition: Stable Is patient prescribed a controlled substance at d/c from ED?: No
[2023-02-25 18:30] LABS: Lactic Acid, Venous 1.2 mmol/L (0.7-2.0)
[2023-02-25 18:32] LABS: Albumin 3.6 g/dL (3.5-5.0); Calcium 9.2 mg/dL (8.4-10.2); Total Bilirubin 0.7 mg/dL (0.2-1.3); Total Protein 6.8 g/dL (6.3-8.2)
[2023-02-25 19:02] LABS: Appearance,Urine Cloudy (Clear); Bilirubin,Urine Negative (Negative); Blood,Urine Large (Negative); Color,Urine Yellow; Glucose,Urine (UA) Negative (Negative); Ketones,Urine Negative (Negative); Leukocyte Esterase,Urine Large (Negative); Mucus,Urine Rare /hpf; Nitrite,Urine Negative (Negative); Protein,Urine Trace (Negative); RBC,Urine 76 /hpf (0-5); Specific Gravity,Urine 1.013 (1.001-1.035); Urobilinogen,Urine <2.0 mg/dL (<2.0); WBC,Urine 84 /hpf (0-5)
[2023-02-25 19:12] LABS: Potassium 7.1 mmol/L (3.5-5.1)
--- NOTE | 2023-02-25 19:35 | US ---
EXAMINATION TYPE: US venous doppler duplex LE RT DATE OF EXAM: 02/25/2023 7:06 PM COMPARISON: NONE CLINICAL HISTORY: Right leg swelling, possible DVT. Right leg swelling. No hx of DVT. Not on blood th inners SIDE PERFORMED: Right TECHNIQUE: The lower extremity deep venous system is examined utilizing real time linear array sonog yuridia with graded compression, doppler sonography and color-flow sonography. VESSELS IMAGED: Common Femoral Vein Deep Femoral Vein Greater Saphenous Vein * Femoral Vein Popliteal Vein Small Saphenous Vein * Proximal Calf Veins (* superficial vessels) Right Leg: Negative for DVT IMPRESSION: No evidence of deep vein thrombosis in the right leg.
[2023-02-25] MEDS ORDERED: INSULIN REGULAR 100 UNIT/ML VIAL (IV) IV STA (20:07)
[2023-02-25] MEDS ORDERED: DEXTROSE 50% SYRINGE 50 ML IVP STA (20:07)
[2023-02-25] MEDS ORDERED: SODIUM BICARB 8.4% 50 ML SYR (1 MEQ/ML) IV STA (20:07)
[2023-02-25] MEDS ORDERED: CALCIUM GLUCONATE IN NACL 1 GM in SALINE 1 100ML.BAG IVPB ONE (20:30)
[2023-02-25] MEDS ORDERED: SODIUM CHLORIDE 0.9% 1,000 ML IV STA (21:18)
[2023-02-25] MEDS ORDERED: SODIUM CHLORIDE 0.9% 500 ML 500 ML IV STA (21:18)
[2023-02-25] MEDS ORDERED: SODIUM CHLORIDE 0.9% 1,000 ML IV ONE (21:18)
[2023-02-25] MEDS: ENTACAPONE 200 MG TAB PO SCH (21:45)
[2023-02-25] MEDS: CARBIDOPA-LEVODOPA ER 50-200MG 1 EACH TABLET.ER PO SCH (21:45)
[2023-02-26] LABS: Basophils % (A) 0 %; Eosinophils % (A) 0 %; HCT 32.2 % (39.0-53.0); HGB 10.8 gm/dL (13.0-17.5); Lymphocytes # (A) 0.2 k/uL (1.0-4.8); Lymphocytes % (A) 1 %; MCH 30.5 pg (25.0-35.0); MCHC 33.5 g/dL (31.0-37.0); Mean Platelet Volume 7.8; Monocytes # (A) 0.5 k/uL (0-1.0); Monocytes % (A) 3 %; Neutrophils # (A) 15.4 k/uL (1.3-7.7); Neutrophils % (A) 94 %; Platelet Count 299 k/uL (150-450); RBC 3.54 m/uL (4.30-5.90); RDW 13.1 % (11.5-15.5); WBC 16.4 k/uL (3.8-10.6)
[2023-02-26 00:28] LABS: Calcium 9.1 mg/dL (8.4-10.2); Potassium 4.7 mmol/L (3.5-5.1); Total Bilirubin 0.6 mg/dL (0.2-1.3); Total Protein 5.8 g/dL (6.3-8.2)
[2023-02-26] MEDS ORDERED: DEXTROSE 50% SYRINGE 50 ML IVP STA (00:49)
[2023-02-26 01:13] LABS: Glucose,Whole Blood 247 mg/dL (70-110)
--- NOTE | 2023-02-26 01:27 | CT ---
EXAMINATION TYPE: CT brain wo con DATE OF EXAM: 02/26/2023 COMPARISON: 02/18/2022 HISTORY: MENTAL STATUS CHANGE FROM PRIOR TO ER ARRIVAL CT DLP: 1341.8 mGycm Automated exposure control for dose reduction was used. Images of the brain obtained with no contrast. There is mild cerebral atrophy. There is no mass effect or midline shift. No sign of intracranial hem orrhage. The calvarium is intact skull base is intact. IMPRESSION: Mild atrophy. No acute intracranial abnormality. No change.
[2023-02-26] MEDS ORDERED: ATORVASTATIN 80 MG TAB PO STA (03:01)
[2023-02-26] MEDS ORDERED: ASPIRIN 325 MG TAB PO STA (03:01)
--- NOTE | 2023-02-26 03:03 | P.HPIM ---
History of Present Illness H&P Date: 02/25/23 The patient is a 72-year-old male with a PMH of Parkinson's, COPD, and hypertension who was brought into the emergency room by his with multiple complaints including generalized weakness, confusion, and abnormal speech. The history was supplemented by the as the patient had garbled speech and was confused at the time of interview. The states that herself and the patient were recently in [place] when the patient developed UTI symptoms. He was subsequently seen by a physician and was started on ciprofloxacin 8 days ago. She reports that the patient's symptoms had initially improved over the first 3 days but then began to worsen again with progressive generalized weakness, confusion, and garbled speech over the past 4 days. She states that they drove back from [place] over the past 3 days and he was seen at his PCPs office earlier in the day and was immediately sent to the emergency room. The patient states that he feels somewhat ill and that his speech has been abnormal over the past "couple of days". He denied experiencing fever or chills. Also denied chest pain, shortness of breath, nausea, vomiting, diarrhea. In the emergency room, the patient was noted to have significant urinary retention on bladder scan with 1.8 L of urine removed upon Trivedi insertion. Case discussed the ED provider in detail with the ED note reviewed. The patient underwent an extensive evaluation in the emergency room with a CT brain that revealed mild atrophy with no acute changes. A lower extremity venous Doppler of the right side was negative. An EKG revealed sinus rhythm with sinus arrhythmia at 86 bpm with poor R-wave progression. Laboratory evaluation was remarkable for leukocytosis of 20.8, hemoglobin 12.1, sodium 140, potassium 7.1, BUN 27, creatinine 15.1, glucose 108, and UA consistent with UTI. Review of systems: Pertinent positives and negatives as discussed in HPI, a complete review of systems was performed and all other systems are negative. Physical examination: Vital signs reviewed General: non toxic, no distress, appears at stated age, normal weight Derm: no unusual rashes/lesions, warm Head: atraumatic, normocephalic, symmetric Eyes: EOMI, no lid lag, anicteric sclera, pupils equal round reactive to light ENT: Nose and ears atraumatic Neck: No cervical lymphadenopathy, trachea midline, supple Mouth: no lip lesion, mucus membranes moist Cardiovascular: S1S2 reg, no murmur, positive dorsalis pedis pulse bilateral, 1+ RLE edema Lungs: CTA bilateral, no rhonchi, no rales, no accessory muscle use Abdominal: soft, nontender to palpation, no guarding Ext: muscle strength 4 out of 5 in all 4 extremities grossly, no gross muscle atrophy, no contractures, Neuro: CN II-XI grossly intact, dysarthric with garbled speech Psych: Alert, oriented to person and place only, appropriate affect Assessment: Acute renal failure suspect secondary to urinary retention in setting of UTI Sepsis secondary to UTI Dysarthria Altered mental status Severe hyperkalemia Elevated troponin Parkinsons Imaging: CT brain that revealed mild atrophy with no acute changes. A lower extremity venous Doppler of the right side was negative. An EKG revealed sinus rhythm with sinus arrhythmia at 86 bpm with poor R-wave progression. Data Review: Laboratory evaluation was remarkable for leukocytosis of 20.8, hemoglobin 12.1, sodium 140, potassium 7.1, BUN 27, creatinine 15.1, glucose 108, and UA consistent with UTI. Plan: Continue ceftriaxone 1 g every 24 hours Follow up urine cultures Status post hyperkalemia cocktail with insulin, sodium bicarbonate, calcium gluconate Nephrology consulted Suspect that altered mentation and dysarthria secondary to uremic encephalopathy Obtain neurology consult Order aspirin and Lipitor. 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 C/w cardiac monitoring and trend for now RLE duplex negative for DVT DVT prophylaxis: Heparin subcu The patient is admitted with an anticipated greater than 2 midnight stay for evaluation of CODE STATUS: Full Code Discussed with: Patient, Anticipated discharge place: Home Past Medical History Past Medical History: COPD, Hypertension, Neurologic Disorder, Osteoarthritis (OA) Additional Past Medical History / Comment(s): Parkinson's-tremors left side History of Any Multi-Drug Resistant Organisms: None Reported Past Surgical History: Orthopedic Surgery Additional Past Surgical History / Comment(s): arthroscopy knee,colonoscopies, TOTAL RIGHT KNEE ARTHROPLASTY Past Anesthesia/Blood Transfusion Reactions: No Reported Reaction Past Psychological History: No Psychological Hx Reported Smoking Status: Never smoker Past Alcohol Use History: Occasional Past Drug Use History: None Reported - Past Family History Father Family Medical History: Cancer Medications and Allergies Home Medications Medication Instructions Recorded Confirmed Type Carbidopa-Levodopa ER 50-200Mg 1 tab PO TID 10/20/17 02/25/23 History [Sinemet CR 50-200 mg] amantadine HCL [Symmetrel] 100 mg PO BID 10/20/17 02/25/23 History Entacapone 200 mg PO TID 06/25/22 02/25/23 History amLODIPine BESYLATE/BENAZEPRIL 1 cap PO DAILY 06/25/22 02/25/23 History [amLODIPine BESYLATE/BENAZEPRIL 5-10 mg] Ciprofloxacin HCl [Cipro] 500 mg PO BID 02/25/23 02/25/23 History Allergies Allergy/AdvReac Type Severity Reaction Status Date / Time No Known Allergies Allergy Verified 02/25/23 17:45 Physical Exam Vitals: Vital Signs Temp Pulse Resp BP Pulse Ox 02/25/23 21:00 98 18 124/60 98 02/25/23 20:32 96.7 F L 92 18 125/64 98 02/25/23 15:27 98.2 F 78 22 111/41 98 Intake and Output 02/25/23 02/25/23 02/26/23 14:59 22:59 06:59 Output Total 3700 Balance -3700 Output: Urine 1900 Post Void Residual 1800 Other: Weight 63.503 kg Results CBC & Chem 7: 02/25/23 23:24 02/25/23 23:24 Labs: Abnormal Lab Results - Last 24 Hours (Table) 02/25/23 02/25/23 02/25/23 Range/Units 17:37 17:37 17:37 WBC 20.8 H (3.8-10.6) k/uL RBC 3.95 L (4.30-5.90) m/uL Hgb 12.1 L (13.0-17.5) gm/dL Hct 36.1 L (39.0-53.0) % Neutrophils # 20.1 H (1.3-7.7) k/uL Lymphocytes # 0.2 L (1.0-4.8) k/uL Potassium 7.1 H* (3.5-5.1) mmol/L Chloride 109 H (98-107) mmol/L Carbon Dioxide 12 L (22-30) mmol/L BUN 207 H* (9-20) mg/dL Creatinine 15.10 H* (0.66-1.25) mg/dL Glucose 108 H (74-99) mg/dL Urine Protein Trace H (Negative) Urine Blood Large H (Negative) Ur Leukocyte Esterase Large H (Negative) Urine RBC 76 H (0-5) /hpf Urine WBC 84 H (0-5) /hpf Urine Mucus Rare H (None) /hpf
[2023-02-26 03:05] LABS: Glucose,Whole Blood 155 mg/dL (70-110)
[2023-02-26] MEDS: SODIUM CHLORIDE 0.9% 1,000 ML IV SCH ×2 (05:58→08:23)
[2023-02-26] MEDS: ENTACAPONE 200 MG TAB PO SCH (07:36)
[2023-02-26] MEDS: CARBIDOPA-LEVODOPA ER 50-200MG 1 EACH TABLET.ER PO SCH (07:37)
--- NOTE | 2023-02-26 08:31 | US ---
EXAMINATION TYPE: US renals and bladder DATE OF EXAM: 02/26/2023 COMPARISON: NONE CLINICAL HISTORY: CATHERINE, urinary retention. CATHERINE EXAM MEASUREMENTS: Right Kidney: 11.8 x 4.8 x 5.6 cm Left Kidney: 11.7 x 5.3 x 5.3 cm Right Kidney: Cystic lesion upper pole= 4.6 x 3.1 x 3.5 cm, mild renal pelvis dilatation= 1.4 cm/ low er pole gassed out Left Kidney: 11.7 x 5.3 x 5.3, lower pole gassed out Bladder: Pt has cath in place There is no evidence for hydronephrosis at this point in time. No nephrolithiasis is seen. No sissy s are identified. Bladder is nondistended. Cortical medullary differentiation is maintained. IMPRESSION: 1. Right simple appearing renal cyst. 2. No evidence of obstructive uropathy.
[2023-02-26] MEDS ORDERED: FAMOTIDINE 20 MG/2 ML VIAL IV SCH (09:00)
[2023-02-26] MEDS ORDERED: HEPARIN SODIUM,PORCINE/PF 5,000 UNIT/0.5 ML SYRINGE SQ SCH (09:00)
[2023-02-26 09:31] LABS: HCT 34.1 % (39.0-53.0); HGB 11.3 gm/dL (13.0-17.5); MCH 30.1 pg (25.0-35.0); MCV 91.2 fL (80.0-100.0); Mean Platelet Volume 7.9; Platelet Count 361 k/uL (150-450); RBC 3.74 m/uL (4.30-5.90); RDW 13.1 % (11.5-15.5); WBC 12.8 k/uL (3.8-10.6)
[2023-02-26 09:42] LABS: Albumin 3.2 g/dL (3.5-5.0); Calcium 9.3 mg/dL (8.4-10.2); Potassium 4.9 mmol/L (3.5-5.1); Total Bilirubin 0.7 mg/dL (0.2-1.3); Total Protein 6.2 g/dL (6.3-8.2)
[2023-02-26] MEDS ORDERED: HEPARIN SODIUM 1,000 UN/ML (10ML VL) IV PRN (10:22)
[2023-02-26] MEDS ORDERED: HEPARIN SODIUM 1,000 UN/ML (10ML VL) IV ONE (10:22)
--- NOTE | 2023-02-26 11:36 | P.GSCN ---
History of Present Illness Consult date: 02/26/23 Reason for Consult: Urinary retention Requesting physician: Jeffrey Christianson History of present illness: The patient is a 72-year-old male with a past medical history significant for Parkinson's, COPD, and hypertension. He presented to the emergency department on 02/25/23 for concerns of generalized weakness and confusion. The patient was in [place] and had been treated with Cipro for about 9 days for a recent urinary tract infection. History of that time was obtained from the as the patient had garbled speech and was confused. She reports the patient's symptoms had initially improved for the first 3 days, but then began to worsen with confusion. He denied any fever/chills, nausea, vomiting, or diarrhea. In the emergency room the patient was noted to have significant urinary retention with a bladder scan of 1.8 L. A Trivedi catheter was placed. Leukocytosis present with a WBC of 20.8, a potassium of 7.1, and a serum creatinine of 15.1. Urinalysis indicative of urinary tract infection, urine culture pending. Review of Systems - Constitutional Reports weakness, Denies chills, Denies fever - Cardiovascular Denies chest pain, Denies shortness of breath - Respiratory Denies cough - Gastrointestinal Reports abdominal pain, Denies nausea, Denies vomiting - Genitourinary Reports dysuria, Reports hematuria, Reports urinary frequency, Denies flank pain - Neurological Reports confusion Past Medical History Past Medical History: COPD, Hypertension, Neurologic Disorder, Osteoarthritis (OA) Additional Past Medical History / Comment(s): Parkinson's-tremors left side History of Any Multi-Drug Resistant Organisms: None Reported Past Surgical History: Orthopedic Surgery Additional Past Surgical History / Comment(s): arthroscopy knee,colonoscopies, TOTAL RIGHT KNEE ARTHROPLASTY Past Anesthesia/Blood Transfusion Reactions: No Reported Reaction Past Psychological History: No Psychological Hx Reported Smoking Status: Never smoker Past Alcohol Use History: Occasional Past Drug Use History: None Reported - Past Family History Father Family Medical History: Cancer Medications and Allergies Home Medications Medication Instructions Recorded Confirmed Type Carbidopa-Levodopa ER 50-200Mg 1 tab PO TID 10/20/17 02/25/23 History [Sinemet CR 50-200 mg] amantadine HCL [Symmetrel] 100 mg PO BID 10/20/17 02/25/23 History Entacapone 200 mg PO TID 06/25/22 02/25/23 History amLODIPine BESYLATE/BENAZEPRIL 1 cap PO DAILY 06/25/22 02/25/23 History [amLODIPine BESYLATE/BENAZEPRIL 5-10 mg] Ciprofloxacin HCl [Cipro] 500 mg PO BID 02/25/23 02/25/23 History Allergies Allergy/AdvReac Type Severity Reaction Status Date / Time No Known Allergies Allergy Verified 02/25/23 17:45 Surgical - Exam Vital Signs Temp Pulse Resp BP Pulse Ox 98.2 F 78 22 111/41 98 02/25/23 15:27 02/25/23 15:27 02/25/23 15:27 02/25/23 15:27 02/25/23 15:27 General: Well developed, well nourished. No acute distress. HEENT: Head is atraumatic, normocephalic. Lungs: Respirations even and nonlabored. On RA Abdomen/GI: Soft, non-distended. No guarding, rigidity, or abdominal tenderness. No flank tenderness. : Trivedi catheter present with cloudy pink tinged urine. Skin: Warm and dry Neurologic: Garbled speech, confused, CN II-XII grossly intact. Psychiatric: Appropriate mood and affect. Results - Labs 02/26/23 11:36 02/26/23 07:49 Abnormal Lab Results - Last 24 Hours (Table) 02/25/23 02/25/23 02/25/23 Range/Units 17:37 17:37 17:37 WBC 20.8 H (3.8-10.6) k/uL RBC 3.95 L (4.30-5.90) m/uL Hgb 12.1 L (13.0-17.5) gm/dL Hct 36.1 L (39.0-53.0) % Neutrophils # 20.1 H (1.3-7.7) k/uL Lymphocytes # 0.2 L (1.0-4.8) k/uL Sodium (137-145) mmol/L Potassium 7.1 H* (3.5-5.1) mmol/L Chloride 109 H (98-107) mmol/L Carbon Dioxide 12 L (22-30) mmol/L BUN 207 H* (9-20) mg/dL Creatinine 15.10 H* (0.66-1.25) mg/dL Glucose 108 H (74-99) mg/dL POC Glucose (mg/dL) (70-110) mg/dL Troponin I (0.000-0.034) ng/mL Total Protein (6.3-8.2) g/dL Albumin (3.5-5.0) g/dL Urine Protein Trace H (Negative) Urine Blood Large H (Negative) Ur Leukocyte Esterase Large H (Negative) Urine RBC 76 H (0-5) /hpf Urine WBC 84 H (0-5) /hpf Urine Mucus Rare H (None) /hpf 02/25/23 02/25/23 02/25/23 Range/Units 22:16 23:24 23:24 WBC 16.4 H (3.8-10.6) k/uL RBC 3.54 L (4.30-5.90) m/uL Hgb 10.8 L (13.0-17.5) gm/dL Hct 32.2 L (39.0-53.0) % Neutrophils # 15.4 H (1.3-7.7) k/uL Lymphocytes # 0.2 L (1.0-4.8) k/uL Sodium 148 H (137-145) mmol/L Potassium (3.5-5.1) mmol/L Chloride 121 H (98-107) mmol/L Carbon Dioxide 14 L (22-30) mmol/L BUN 170 H* (9-20) mg/dL Creatinine 10.78 H* (0.66-1.25) mg/dL Glucose 44 L* (74-99) mg/dL POC Glucose (mg/dL) (70-110) mg/dL Troponin I 0.046 H* (0.000-0.034) ng/mL Total Protein 5.8 L (6.3-8.2) g/dL Albumin 3.0 L (3.5-5.0) g/dL Urine Protein (Negative) Urine Blood (Negative) Ur Leukocyte Esterase (Negative) Urine RBC (0-5) /hpf Urine WBC (0-5) /hpf Urine Mucus (None) /hpf 02/26/23 02/26/23 02/26/23 Range/Units 00:39 01:12 03:04 WBC (3.8-10.6) k/uL RBC (4.30-5.90) m/uL Hgb (13.0-17.5) gm/dL Hct (39.0-53.0) % Neutrophils # (1.3-7.7) k/uL Lymphocytes # (1.0-4.8) k/uL Sodium (137-145) mmol/L Potassium (3.5-5.1) mmol/L Chloride (98-107) mmol/L Carbon Dioxide (22-30) mmol/L BUN (9-20) mg/dL Creatinine (0.66-1.25) mg/dL Glucose (74-99) mg/dL POC Glucose (mg/dL) 247 H 155 H (70-110) mg/dL Troponin I 0.083 H* (0.000-0.034) ng/mL Total Protein (6.3-8.2) g/dL Albumin (3.5-5.0) g/dL Urine Protein (Negative) Urine Blood (Negative) Ur Leukocyte Esterase (Negative) Urine RBC (0-5) /hpf Urine WBC (0-5) /hpf Urine Mucus (None) /hpf Microbiology - Last 24 Hours (Table) 02/25/23 18:19 Urine Culture - Preliminary Urine,Catheterized Diabetes panel 02/25/23 02/25/23 Range/Units 17:37 23:24 Sodium 140 148 H (137-145) mmol/L Potassium 7.1 H* 4.7 (3.5-5.1) mmol/L Chloride 109 H 121 H (98-107) mmol/L Carbon Dioxide 12 L 14 L (22-30) mmol/L BUN 207 H* 170 H* (9-20) mg/dL Creatinine 15.10 H* 10.78 H* (0.66-1.25) mg/dL Glucose 108 H 44 L* (74-99) mg/dL Calcium 9.2 9.1 (8.4-10.2) mg/dL AST 20 20 (17-59) U/L ALT 10 10 (4-49) U/L Alkaline Phosphatase 99 93 (38-126) U/L Total Protein 6.8 5.8 L (6.3-8.2) g/dL Albumin 3.6 3.0 L (3.5-5.0) g/dL Calcium panel 02/25/23 02/25/23 Range/Units 17:37 23:24 Calcium 9.2 9.1 (8.4-10.2) mg/dL Albumin 3.6 3.0 L (3.5-5.0) g/dL Pituitary panel 02/25/23 02/25/23 Range/Units 17:37 23:24 Sodium 140 148 H (137-145) mmol/L Potassium 7.1 H* 4.7 (3.5-5.1) mmol/L Chloride 109 H 121 H (98-107) mmol/L Carbon Dioxide 12 L 14 L (22-30) mmol/L BUN 207 H* 170 H* (9-20) mg/dL Creatinine 15.10 H* 10.78 H* (0.66-1.25) mg/dL Glucose 108 H 44 L* (74-99) mg/dL Calcium 9.2 9.1 (8.4-10.2) mg/dL Adrenal panel 02/25/23 02/25/23 Range/Units 17:37 23:24 Sodium 140 148 H (137-145) mmol/L Potassium 7.1 H* 4.7 (3.5-5.1) mmol/L Chloride 109 H 121 H (98-107) mmol/L Carbon Dioxide 12 L 14 L (22-30) mmol/L BUN 207 H* 170 H* (9-20) mg/dL Creatinine 15.10 H* 10.78 H* (0.66-1.25) mg/dL Glucose 108 H 44 L* (74-99) mg/dL Calcium 9.2 9.1 (8.4-10.2) mg/dL Total Bilirubin 0.7 0.6 (0.2-1.3) mg/dL AST 20 20 (17-59) U/L ALT 10 10 (4-49) U/L Alkaline Phosphatase 99 93 (38-126) U/L Total Protein 6.8 5.8 L (6.3-8.2) g/dL Albumin 3.6 3.0 L (3.5-5.0) g/dL Assessment and Plan Assessment: The patient is resting in bed. He has garbled speech and confusion. The patient's was contacted via telephone to obtain history. She reports that the patient has no history of kidney stones, prostate issues, or urological surgeries. No history of cancer. 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 She stat es the patient was seen in urgent care approximately 10 days ago and started on Cipro for a urinary tract infection. At that time he had hematuria. His symptoms improved for the first 3 days and his urine cleared. Then the patient became confused and had abnormal speech. No fever, chills, nausea, vomiting, or back pain. He did complain of some lower abdominal pain. Today the patient is afebrile and his vital signs are stable. He has been started on Rocephin. WBCs are trending downward and are 16.4. His potassium has normalized and is 4.7. Serum creatinine is also trending downward and is 10.78. Nephrology following for CATHERINE and hyperkalemia. Hematuria likely caused by over distention of his bladder and infection. His Trivedi catheter should remain in place for 7- 10 days to allow his bladder to regain tone. At that time the catheter can be removed for a voiding trial. (1) Gross hematuria Current Visit: Yes Status: Acute Code(s): R31.0 - GROSS HEMATURIA SNOMED Code(s): 880295534 Plan: - Continue Rocephin - Monitor WBC - Monitor creatinine - Awaiting finalization of urine culture - Start Flomax - Maintain Trivedi catheter for 7-10 days, then the Trivedi can be removed for a voiding trial Thank you for this consultation Impression and plan of care have been directed as dictated by the signing physician. Yocasta Escalona nurse practitioner acting as scribe for signing physician. Yocasta Escalona [facility] Palliative Care/Urology Spectralink [phone] Email: [email or web address] The patient has been interviewed and examined. I concur with the above- mentioned consult. I suspect the infection is limited to the retention aggravated by the long trip back to [place] from [place]. Anjum Colon M.D.
[2023-02-26] MEDS: HALOPERIDOL LACTATE 5 MG/ML 1 ML VIAL IVP PRN (11:42)
[2023-02-26 11:54] LABS: Basophils % (A) 0 %; Eosinophils % (A) 0 %; HCT 34.9 % (39.0-53.0); HGB 11.5 gm/dL (13.0-17.5); Lymphocytes # (A) 0.3 k/uL (1.0-4.8); Lymphocytes % (A) 2 %; MCH 29.9 pg (25.0-35.0); MCV 90.5 fL (80.0-100.0); Mean Platelet Volume 7.8; Monocytes # (A) 0.3 k/uL (0-1.0); Monocytes % (A) 2 %; Neutrophils # (A) 12.2 k/uL (1.3-7.7); Neutrophils % (A) 94 %; Platelet Count 380 k/uL (150-450); RBC 3.86 m/uL (4.30-5.90); RDW 13.1 % (11.5-15.5)
[2023-02-26 12:05] LABS: INR 1.1 (<1.2); Partial Thromboplastin Time 22.9 sec (22.0-30.0); Prothrombin Time 11.1 sec (9.0-12.0)
--- NOTE | 2023-02-26 12:07 | P.NPCON ---
History of Present Illness - Reason for Consult acute renal failure - History of Present Illness Patient is a 72-year-old male with history of Parkinson's disease, COPD, hypertension who is admitted to the hospital with history of mental status changes, abnormal speech and increased weakness. Patient was treated for possible UTI as outpatient by Harsha reyes about 1 week prior to admission. Upon admission patient is noted to have a serum creatinine of 15.1 and potassium of 7.1. A Trivedi catheter was placed and 1800 mL of urine was obtained on initial catheter placement. Serum potassium improved to 4.7 and and serum creatinine is down to 6.8. Sodium has increased to 157. Patient was also s ignificantly acidotic with CO2 of 12. This has improved as well Patient appears confused. Blood pressure has not been low. Maintained on RUDDY inhibitor as prior to admission. Review of Systems As per HPI Past Medical History Past Medical History: COPD, Hypertension, Neurologic Disorder, Osteoarthritis (OA) Additional Past Medical History / Comment(s): Parkinson's-tremors left side History of Any Multi-Drug Resistant Organisms: None Reported Past Surgical History: Orthopedic Surgery Additional Past Surgical History / Comment(s): arthroscopy knee,colonoscopies, TOTAL RIGHT KNEE ARTHROPLASTY Past Anesthesia/Blood Transfusion Reactions: No Reported Reaction Past Psychological History: No Psychological Hx Reported Smoking Status: Never smoker Past Alcohol Use History: Occasional Past Drug Use History: None Reported - Past Family History Father Family Medical History: Cancer Medications and Allergies Home Medications Medication Instructions Recorded Confirmed Type Carbidopa-Levodopa ER 50-200Mg 1 tab PO TID 10/20/17 02/25/23 History [Sinemet CR 50-200 mg] amantadine HCL [Symmetrel] 100 mg PO BID 10/20/17 02/25/23 History Entacapone 200 mg PO TID 06/25/22 02/25/23 History amLODIPine BESYLATE/BENAZEPRIL 1 cap PO DAILY 06/25/22 02/25/23 History [amLODIPine BESYLATE/BENAZEPRIL 5-10 mg] Ciprofloxacin HCl [Cipro] 500 mg PO BID 02/25/23 02/25/23 History Allergies Allergy/AdvReac Type Severity Reaction Status Date / Time No Known Allergies Allergy Verified 02/25/23 17:45 Physical Exam Vitals: Vital Signs Temp Pulse Pulse Resp BP BP Pulse Ox 02/26/23 11:44 115 H 16 151/69 97 02/26/23 07:58 98.1 F 102 H 20 143/65 98 02/26/23 03:31 20 02/26/23 03:29 97.9 F 99 20 124/59 99 02/26/23 03:00 97 20 128/84 02/26/23 02:30 98 18 132/73 02/26/23 02:00 97 16 02/26/23 01:40 102 H 20 133/63 02/26/23 01:30 16 124/58 02/26/23 01:24 99 21 124/58 96 02/25/23 23:00 103 H 18 100/83 97 02/25/23 21:00 98 18 124/60 98 02/25/23 20:32 96.7 F L 92 18 125/64 98 02/25/23 15:27 98.2 F 78 22 111/41 98 Intake and Output 02/25/23 02/26/23 02/26/23 22:59 06:59 14:59 Output Total 3700 3000 1974 Balance -3700 -3000 Output: Urine 1900 3000 1974 Post Void Residual 1800 Other: Voiding Method Indwelling Catheter Indwelling Catheter Weight 63.503 kg 60.5 kg 60.5 kg Patient is awake, comfortable, no acute distress. He is carrying on a conversation however he appears pleasantly confused. Examination of the heart S1 and S2 Examination of the lungs bilateral breath sounds are heard Abdomen is soft nontender Examination of lower extremity shows no evidence of edema [employer] exam shows patient is able to move all 4 extremities. He is confused Results - Lab Results Most recent lab results Calcium 9.3 mg/dL (8.4-10.2) 02/26/23 07:49 02/26/23 11:36 02/26/23 07:49 Assessment and Plan Assessment: 1. Acute kidney injury secondary to obstructive uropathy currently significant ly improved post Trivedi catheter placement and IV hydration 2. Hyperkalemia associated with acute kidney injury, urine retention and severe metabolic acidosis in the setting of use of RUDDY inhibitor's, currently improved 3. Non-gap metabolic acidosis secondary to acute kidney injury and urine reten tion slowly improving 4. Hypernatremia associated with free water deficit and postobstructive diure sis 5. elevated troponin with possible non-ST elevation WA as troponin has increased significantly from 0.08-4.6 today. Plan: Switch IV fluids to D5W Add oral sodium bicarb Repeat labs this afternoon and consider bicarb drip based on the sodium and CO2 levels. Continue with Trivedi catheter next Thank you for the consultation. We will continue to follow the patient with you during his hospitalization
[2023-02-26 12:37] LABS: Glucose,Whole Blood 143 mg/dL (70-110)
[2023-02-26] MEDS: HEPARIN SOD,PORK IN 0.45% NACL 25,000 UNIT in 0.45% NACL 1 250ML.BAG IV SCH (12:37)
--- NOTE | 2023-02-26 13:47 | P.PN ---
Subjective Progress Note Date: 02/26/23 (patient seen at approx 11am) Patient is a 72-year-old male with Parkinson's, COPD, and hypertension who presented to the emergency department with multiple complaints including generalized weakness, confusion, and abnormal speech. Patient had developed urinary tract infection in [place] and was started on Cipro 8 days ago. He had worsened over the last 3 days and was seen in his PCPs office earlier on the day of admission and sent to the emergency department. In the emergency department the patient had urinary retention on bladder scan and had 1.8 L of urine removed upon Trivedi insertion. On arrival to the ER patient's vital signs were within normal limits. Laboratory analysis was remarkable for a white blood cell count of 20.8, hemoglobin 12.1, potassium 7.1, carbon dioxide 12, anion gap 19, BUN 207, creatinine 15.1, glucose of 108, urinalysis showed 84 white blood cells. Covid testing was negative. Troponin was mildly elevated at 0.46 in the ER he was given a dose of Rocephin. He was started on IV fluids. He was given potassium stabilizing agents. He was admitted for further monitoring. Urology and nephrology were consulted. Patient seen and examined at bedside. He is pleasantly confused. He is unable to answer questions and he believes he is on a leighton Vital signs reviewed General: nontoxic, no distress, appears at stated age, mucous membranes dry Cardiovascular: S1S2 reg, no murmur, positive posterior tibial pulse bilateral, Lungs: CTA bilateral, no rhonchi, no rales , no accessory muscle use Abdominal: soft, nontender to palpation, no guarding, no appreciable organomegaly Ext: no gross muscle atrophy, no edema, no contractures Neuro: CN II-XI grossly intact, no focal neuro deficits Psych: Alert, oriented to self only, pleasantly confused, hyperactive Assessment: Urinary tract infection, present prior to admission with sepsis Acute renal failure likely secondary to urinary retention Urinary retention status post insertion of Trivedi catheter with 1.8 L removed Hyperkalemia, resolved NSTEMI Hypernatremia High anion gap metabolic acidosis Elevated troponin, not reflective of coronary disease but reflective of acute renal failure Hypoglycemia Acute metabolic encephalopathy with dystharia Chronic: COPD Hypertension Parkinson's disease Imaging: CT had-mild atrophy, no acute intracranial abnormality Right lower shotty venous Doppler-negative for DVT Data Review: Morning labs reviewed and remarkable for white blood cell count 12.8, hemoglobin 11.3, sodium 157, chloride 128, carbon dioxide 17, BUN 120, creatinine 6.83, troponin 4.6 Plan: -Hold RUDDY inhibitor -Continue with Trivedi catheter -Await urology recommendations -No need for neurological consultation at this time with severe electrolyte derangements. -Check renal ultrasound -Check stat repeat CBC and basic metabolic profile (as reviewed above) -Consult cardiology given increased troponin of 4.6 and start heparin drip, statin -Case discussed with Dr. Ashby. Patient has been transitioned to dextrose in water at 75 mL/h. We'll repeat CMP this afternoon. -Patient with hyperactive delirium will hold amantadine, entacapone, and Sinemet -Add Haldol 2 mg IV every 8 hours when necessary agitation DVT prophylaxis: Heparin gtt Anticipated discharge date: Pending Clinical course Anticipated discharge place: Pending Clinical course This dictation was prepared using [employer] voice recognition software. Though every attempt is made to correct errors during during dictation some may still exist. Objective - Vital Signs Vital signs: Vital Signs Temp 97.9 F 02/26/23 03:29 Pulse 99 02/26/23 03:29 Resp 20 02/26/23 03:31 BP 124/59 02/26/23 03:29 Pulse Ox 99 02/26/23 03:29 FiO2 Intake & Output 02/25/23 02/26/23 02/26/23 18:59 06:59 18:59 Output Total 1800 4900 600 Balance -1800 -4900 -600 Weight 63.503 kg 60.5 kg 60.5 kg Output: Urine 4900 600 Post Void Residual 1800 Other: Voiding Method Indwelling Catheter - Labs CBC & Chem 7: 02/26/23 11:36 02/26/23 07:49 Labs: Abnormal Lab Results - Last 24 Hours (Table) 02/25/23 02/25/23 02/25/23 Range/Units 17:37 17:37 17:37 WBC 20.8 H (3.8-10.6) k/uL RBC 3.95 L (4.30-5.90) m/uL Hgb 12.1 L (13.0-17.5) gm/dL Hct 36.1 L (39.0-53.0) % Neutrophils # 20.1 H (1.3-7.7) k/uL Lymphocytes # 0.2 L (1.0-4.8) k/uL Sodium (137-145) mmol/L Potassium 7.1 H* (3.5-5.1) mmol/L Chloride 109 H (98-107) mmol/L Carbon Dioxide 12 L (22-30) mmol/L BUN 207 H* (9-20) mg/dL Creatinine 15.10 H* (0.66-1.25) mg/dL Glucose 108 H (74-99) mg/dL POC Glucose (mg/dL) (70-110) mg/dL Troponin I (0.000-0.034) ng/mL Total Protein (6.3-8.2) g/dL Albumin (3.5-5.0) g/dL Urine Protein Trace H (Negative) Urine Blood Large H (Negative) Ur Leukocyte Esterase Large H (Negative) Urine RBC 76 H (0-5) /hpf Urine WBC 84 H (0-5) /hpf Urine Mucus Rare H (None) /hpf 02/25/23 02/25/23 02/25/23 Range/Units 22:16 23:24 23:24 WBC 16.4 H (3.8-10.6) k/uL RBC 3.54 L (4.30-5.90) m/uL Hgb 10.8 L (13.0-17.5) gm/dL Hct 32.2 L (39.0-53.0) % Neutrophils # 15.4 H (1.3-7.7) k/uL Lymphocytes # 0.2 L (1.0-4.8) k/uL Sodium 148 H (137-145) mmol/L Potassium (3.5-5.1) mmol/L Chloride 121 H (98-107) mmol/L Carbon Dioxide 14 L (22-30) mmol/L BUN 170 H* (9-20) mg/dL Creatinine 10.78 H* (0.66-1.25) mg/dL Glucose 44 L* (74-99) mg/dL POC Glucose (mg/dL) (70-110) mg/dL Troponin I 0.046 H* (0.000-0.034) ng/mL Total Protein 5.8 L (6.3-8.2) g/dL Albumin 3.0 L (3.5-5.0) g/dL Urine Protein (Negative) Urine Blood (Negative) Ur Leukocyte Esterase (Negative) Urine RBC (0-5) /hpf Urine WBC (0-5) /hpf Urine Mucus (None) /hpf 02/26/23 02/26/23 02/26/23 Range/Units 00:39 01:12 03:04 WBC (3.8-10.6) k/uL RBC (4.30-5.90) m/uL Hgb (13.0-17.5) gm/dL Hct (39.0-53.0) % Neutrophils # (1.3-7.7) k/uL Lymphocytes # (1.0-4.8) k/uL Sodium (137-145) mmol/L Potassium (3.5-5.1) mmol/L Chloride (98-107) mmol/L Carbon Dioxide (22-30) mmol/L BUN (9-20) mg/dL Creatinine (0.66-1.25) mg/dL Glucose (74-99) mg/dL POC Glucose (mg/dL) 247 H 155 H (70-110) mg/dL Troponin I 0.083 H* (0.000-0.034) ng/mL Total Protein (6.3-8.2) g/dL Albumin (3.5-5.0) g/dL Urine Protein (Negative) Urine Blood (Negative) Ur Leukocyte Esterase (Negative) Urine RBC (0-5) /hpf Urine WBC (0-5) /hpf Urine Mucus (None) /hpf Microbiology - Last 24 Hours (Table) 02/25/23 18:19 Urine Culture - Preliminary Urine,Catheterized
[2023-02-26] MEDS: TAMSULOSIN 0.4 MG CAP.ER.24H PO SCH (14:45)
[2023-02-26] MEDS: amLODIPine 5 MG TAB PO SCH (14:45)
[2023-02-26] MEDS: DEXTROSE 5% IN WATER 1,000 ML IV SCH (14:47)
[2023-02-26 16:20] LABS: Glucose,Whole Blood 254 mg/dL (70-110)
[2023-02-26 17:33] LABS: Albumin 3.1 g/dL (3.5-5.0); Calcium 9.2 mg/dL (8.4-10.2); Potassium 3.9 mmol/L (3.5-5.1); Total Bilirubin 0.6 mg/dL (0.2-1.3); Total Protein 6.1 g/dL (6.3-8.2)
[2023-02-26] MEDS ORDERED: DEXTROSE 50% SYRINGE 50 ML IVP PRN ×2 (18:07)
[2023-02-26 20:16] LABS: Glucose,Whole Blood 187 mg/dL (70-110)
[2023-02-26] MEDS: INSULIN ASPART (NovoLOG) 100 UNIT/ML VIAL SQ SCH (20:46)
[2023-02-26] MEDS ORDERED: FAMOTIDINE 20 MG TAB PO SCH (21:00)
[2023-02-27] MEDS: DEXTROSE 5% IN WATER 1,000 ML IV SCH ×3 (03:16→09:02)
[2023-02-27 06:01] LABS: Glucose,Whole Blood 166 mg/dL (70-110)
[2023-02-27] MEDS: INSULIN ASPART (NovoLOG) 100 UNIT/ML VIAL SQ SCH ×4 (06:07→20:10)
[2023-02-27] MEDS: HEPARIN SOD,PORK IN 0.45% NACL 25,000 UNIT in 0.45% NACL 1 250ML.BAG IV SCH (09:00)
--- NOTE | 2023-02-27 09:35 | CA ---
Transthoracic Echo Report Name: Michael Estrella Age: 72 Gender: M : 1950 Exam Date: 02/26/2023 10:46 Exam Location: [facility] Ht (in): 69 Wt (lb): 133 Ordering Physician: Puja De Luna DO Attending/Referring Phys: [id number], [employer] Ricci Coyne NIKKO Procedure CPT: Indications: nstemi Cardiac Hx: Patient was extremely agitated; the test couldn't be finished. Technical Quality: Technically difficult study Contrast 1: Total Dose (mL): Contrast 2: Total Dose (mL): MEASUREMENTS (Male / Female) Normal Values 2D ECHO LV Diastolic Diameter PLAX 4.6 cm 4.2 - 5.9 / 3.9 - 5.3 cm LV Systolic Diameter PLAX 3.3 cm LV Fractional Shortening PLAX 29.7 % IVS Diastolic Thickness 0.7 cm 0.6 - 1.0 / 0.6 - 0.9 cm IVS Systolic Thickness 1.2 cm LVPW Diastolic Thickness 0.8 cm 0.6 - 1.0 / 0.6 - 0.9 cm LVPW Systolic Thickness 1.1 cm LV Relative Wall Thickness 0.3 LVOT Diameter 1.9 cm LA Systolic Diameter LX 3.9 cm 3.0 - 4.0 / 2.7 - 3.8 cm LV Diastolic Volume MOD BP 88.7 cm??? 67 - 155 / 56 - 104 cm??? LV Systolic Volume MOD BP 43.4 cm??? 22 - 58 / 19 - 49 cm??? LV Ejection Fraction MOD BP 51.1 % >= 55 % LV Stroke Volume MOD BP 45.4 cm??? LV Diastolic Volume MOD 4C 88.4 cm??? LV Systolic Volume MOD 4C 45.4 cm??? LV Ejection Fraction MOD 4C 48.7 % LV Stroke Volume MOD 4C 43.1 cm??? LV Diastolic Length 4C 8.4 cm LV Systolic Length 4C 7.3 cm LV Diastolic Volume MOD 2C 89.4 cm??? LV Systolic Volume MOD 2C 41.9 cm??? LV Ejection Fraction MOD 2C 53.1 % LV Stroke Volume MOD 2C 47.5 cm??? LV Diastolic Length 2C 8.6 cm LV Systolic Length 2C 7.2 cm Ascending Aorta Diameter 2.7 cm M-MODE Aortic Root Diameter MM 3.4 cm LA Systolic Diameter MM 2.7 cm LA Ao Ratio MM 0.8 MV E Point Septal Separation 2.7 cm AV Cusp Separation MM 1.5 cm DOPPLER AV Peak Velocity 127.4 cm/s AV Peak Gradient 6.5 mmHg MV Deceleration [place] 376.9 cm/s??? MR Peak Velocity 526.8 cm/s MR Peak Gradient 111.0 mmHg MR Mean Velocity 425.7 cm/s MR Mean Gradient 80.6 mmHg MR Velocity Time Integral 141.4 cm MR Flow Rate PISA 43.0 cm???/s Mitral E Point Velocity 69.1 cm/s Mitral A Point Velocity 105.3 cm/s Mitral E to A Ratio 0.7 MV Deceleration Time 183.4 ms MV E' Velocity 8.3 cm/s Mitral E to MV E' Ratio 8.3 TR Peak Velocity 277.6 cm/s TR Peak Gradient 30.8 mmHg Right Ventricular Systolic Press 38.8 mmHg PV Peak Velocity 123.2 cm/s PV Peak Gradient 6.1 mmHg FINDINGS Left Ventricle Left ventricular ejection fraction is estimated at 50 %. Grade 1 diastolic dysfunction. Basal mid inferior hypokinesis Right Ventricle Normal right ventricular global systolic function. RVSP- 39 mm Hg. Right Atrium Normal right atrial size. Left Atrium Mild left atrial dilatation. Mitral Valve Mitral valve thickened. Moderate mitral regurgitation. Aortic Valve Trileaflet aortic valve. Diffuse thickening (sclerosis) of the aortic valve cusps without reduced excursion. Tricuspid Valve Fegn-yi-wnaolsli tricuspid regurgitation. Pulmonic Valve Pulmonic valve not well visualized. Pericardium Normal pericardium. No pericardial effusion. Aorta Normal size aortic root and proximal ascending aorta. CONCLUSIONS Left ventricular ejection fraction 50% Basal to mid inferior hypokinesis Moderate mitral regurgitation RVSP 39 Mild to moderate tricuspid regurgitation Previewed by: Dr. Juan Hamilton DO (Electronically Signed) Final Date: 27 February 2023 09:34
--- NOTE | 2023-02-27 10:32 | P.PN ---
Subjective Patient is seen for follow-up for acute kidney injury, hyperkalemia and hyponatremia. Patient is currently maintained on D5W. Labs are pending from today. Patient had significant urine retention on admission. 1800 ML of urine was obtained on Trivedi catheter placement. Ultrasound shows no hydronephrosis. Patient has been confused. Objective - Vital Signs Vital signs: Vital Signs Temp 98.5 F 02/27/23 09:08 Pulse 70 02/27/23 09:08 Resp 18 02/27/23 09:08 BP 128/76 02/27/23 09:08 Pulse Ox 96 02/27/23 09:08 FiO2 Intake & Output 02/26/23 02/27/23 02/27/23 18:59 06:59 18:59 Intake Total 049.967 8381.125 1333.48 Output Total 2900 850 Balance -2503.337 995.007 8134.48 Weight 60.5 kg Intake: Intake, IV Titration 36.663 9533.478 7968.48 Amount Dextrose 5% in Water 1, 1500 1000 000 ml @ 125 mls/hr IV . Q8H [facility] Rx#:[id number] Heparin Sod,Pork in 0.45% 36.663 61.125 83.48 NaCl 25,000 unit In 0.45 % NaCl 1 250ml.bag @ 12 UNITS/KG/HR 7.26 mls/hr IV .Q24H [facility] Rx#: [id number] cefTRIAXone 1 gm In 50 Sodium Chloride 0.9% 50 ml @ 100 mls/hr IVPB Q24HR [facility] Rx#:[id number] Oral 360 200 Output: Urine 2900 850 Other: Voiding Method Indwelling Catheter Indwelling Catheter Indwelling Catheter - Exam Awake, comfortable, no acute distress Garbled speech Examination of the heart S1 and S2 Examination of the lungs bilateral breath sounds are heard Abdomen is soft nontender Examination of the lower extremities shows no evidence of edema [employer] exam shows patient is moving all 4 extremities. He is confused. - Labs CBC & Chem 7: 02/26/23 11:36 02/26/23 16:17 Labs: Abnormal Lab Results - Last 24 Hours (Table) 02/26/23 02/26/23 02/26/23 Range/Units 11:36 12:36 16:17 WBC 13.0 H (3.8-10.6) k/uL RBC 3.86 L (4.30-5.90) m/uL Hgb 11.5 L (13.0-17.5) gm/dL Hct 34.9 L (39.0-53.0) % Neutrophils # 12.2 H (1.3-7.7) k/uL Lymphocytes # 0.3 L (1.0-4.8) k/uL APTT 39.2 H (22.0-30.0) sec Sodium (137-145) mmol/L Chloride (98-107) mmol/L Carbon Dioxide (22-30) mmol/L BUN (9-20) mg/dL Creatinine (0.66-1.25) mg/dL Glucose (74-99) mg/dL POC Glucose (mg/dL) 143 H (70-110) mg/dL Total Protein (6.3-8.2) g/dL Albumin (3.5-5.0) g/dL 02/26/23 02/26/23 02/26/23 Range/Units 16:17 16:19 20:05 WBC (3.8-10.6) k/uL RBC (4.30-5.90) m/uL Hgb (13.0-17.5) gm/dL Hct (39.0-53.0) % Neutrophils # (1.3-7.7) k/uL Lymphocytes # (1.0-4.8) k/uL APTT (22.0-30.0) sec Sodium 158 H (137-145) mmol/L Chloride 129 H (98-107) mmol/L Carbon Dioxide 20 L (22-30) mmol/L BUN 88 H (9-20) mg/dL Creatinine 3.64 H (0.66-1.25) mg/dL Glucose 188 H (74-99) mg/dL POC Glucose (mg/dL) 254 H 187 H (70-110) mg/dL Total Protein 6.1 L (6.3-8.2) g/dL Albumin 3.1 L (3.5-5.0) g/dL 02/26/23 02/27/23 Range/Units 23:56 06:00 WBC (3.8-10.6) k/uL RBC (4.30-5.90) m/uL Hgb (13.0-17.5) gm/dL Hct (39.0-53.0) % Neutrophils # (1.3-7.7) k/uL Lymphocytes # (1.0-4.8) k/uL APTT 31.8 H (22.0-30.0) sec Sodium (137-145) mmol/L Chloride (98-107) mmol/L Carbon Dioxide (22-30) mmol/L BUN (9-20) mg/dL Creatinine (0.66-1.25) mg/dL Glucose (74-99) mg/dL POC Glucose (mg/dL) 166 H (70-110) mg/dL Total Protein (6.3-8.2) g/dL Albumin (3.5-5.0) g/dL Microbiology - Last 24 Hours (Table) 02/25/23 17:45 Blood Culture - Preliminary Blood No Growth after 24 hours 02/25/23 17:30 Blood Culture - Preliminary Blood No Growth after 24 hours 02/25/23 18:19 Urine Culture - Final Urine,Catheterized Assessment and Plan Assessment: 1. Acute kidney injury secondary to obstructive uropathy currently significantly improved post Trivedi catheter placement and IV hydration 2. Hyperkalemia associated with acute kidney injury, urine retention and severe metabolic acidosis in the setting of use of RUDDY inhibitor's, currently improved 3. Non-gap metabolic acidosis secondary to acute kidney injury and urine retention slowly improving 4. Hypernatremia associated with free water deficit and postobstructive diuresis 5. elevated troponin with possible non-ST elevation SC as troponin has increased significantly from 0.08-4.6 . Maintained on IV heparin. Plan: Continue D5W Follow-up on labs from today Continue with Trivedi catheter. Continue Flomax
[2023-02-27] MEDS: HALOPERIDOL LACTATE 5 MG/ML 1 ML VIAL IVP PRN (10:35)
[2023-02-27] MEDS: FAMOTIDINE 20 MG TAB PO SCH (10:43)
[2023-02-27] MEDS: SODIUM BICARBONATE TAB 650 MG TAB PO SCH (10:43)
[2023-02-27] MEDS: ATORVASTATIN 40 MG TAB PO SCH (10:43)
[2023-02-27] MEDS: amLODIPine 5 MG TAB PO SCH (10:43)
[2023-02-27] MEDS: TAMSULOSIN 0.4 MG CAP.ER.24H PO SCH (10:43)
[2023-02-27 10:49] LABS: Basophils % (A) 0 %; Eosinophils # (A) 0.1 k/uL (0-0.7); Eosinophils % (A) 1 %; HCT 35.1 % (39.0-53.0); HGB 11.5 gm/dL (13.0-17.5); Lymphocytes # (A) 0.6 k/uL (1.0-4.8); Lymphocytes % (A) 6 %; MCH 29.8 pg (25.0-35.0); MCHC 32.6 g/dL (31.0-37.0); MCV 91.3 fL (80.0-100.0); Mean Platelet Volume 7.5; Monocytes # (A) 0.3 k/uL (0-1.0); Monocytes % (A) 3 %; Neutrophils # (A) 8.1 k/uL (1.3-7.7); Neutrophils % (A) 88 %; Platelet Count 369 k/uL (150-450); RBC 3.85 m/uL (4.30-5.90); WBC 9.2 k/uL (3.8-10.6)
[2023-02-27 10:57] LABS: INR 1.1 (<1.2); Partial Thromboplastin Time 38.7 sec (22.0-30.0); Prothrombin Time 11.1 sec (9.0-12.0)
[2023-02-27 11:12] LABS: Calcium 8.5 mg/dL (8.4-10.2); Potassium 3.8 mmol/L (3.5-5.1)
--- NOTE | 2023-02-27 11:19 | P.CRDCN ---
History of Present Illness Consult date: 02/27/23 Reason for Consult (text): Non-ST elevated myocardial infarction History of present illness: History of present illness: This is a 72-year-old male patient does not follow with cardiology. He has a past medical history of end-stage renal disease on dialysis, COPD, hypertension, Parkinson's. Patient was brought into the hospital for worsening generalized weakness and disorientation, recently treated for urinary tract infection in [place] with ciprofloxacin. Patient's has been driving back from [place] for the past 3 days and patient was developing worsening mental status. Was seen in the clinic and sent into the hospital for direct admission. Patient is seen on the cardiac stepdown unit. No history can be obtained from the patient. EKG sinus rhythm CAT scan of brain showed mild atrophy and no acute intracranial abnormality. WBC 20.8, hemoglobin 12.1, platelet count 361. Sodium 140, potassium 7.1, chloride 109, CO2 12, BUN 207, creatinine 15. Liver function tests normal. Troponin 0.046, 0.083, 4.6 Venous ultrasound of the right lower extremity negative for DVT Renal ultrasound right simple appearing renal cyst. No obstructive uropathy Echocardiogram 02/26/2023: EF 50%. Basal to mid inferior hypokinesis, moderate mitral regurgitation, RVSP 39, mild to moderate tricuspid regurgitation. Home cardiac medications: Amlodipine/benazepril 510 milligrams daily Review Of Systems: At the time of my evaluation: Unable to obtain from patient due to mental status changes Physical examination: Gen: This is a frail ill-appearing 72 year old male resting in bed. No respiratory distress noted VS: reviewed LUNGS: Clear to auscultation. No wheezes or rhonchi. No intercostal retractions. HEART: Regular rate and rhythm. EXTREMITIES: No pedal edema. NEUROLOGICAL: Patient is obtunded. Assessment: Metabolic encephalopathy Acute kidney injury End-stage renal disease Elevated troponin most likely due to acute kidney injury Plan: No cardiac workup at this time, no echocardiogram Cardiology will sign off and follow on an as-needed basis Thank you kindly for this consultation. Nurse practitioner note has been reviewed, I agree with documented findings and plan of care. Patient was seen and examined. Past Medical History Past Medical History: COPD, Hypertension, Neurologic Disorder, Osteoarthritis (OA) Additional Past Medical History / Comment(s): Parkinson's-tremors left side History of Any Multi-Drug Resistant Organisms: None Reported Past Surgical History: Orthopedic Surgery Additional Past Surgical History / Comment(s): arthroscopy knee,colonoscopies, TOTAL RIGHT KNEE ARTHROPLASTY Past Anesthesia/Blood Transfusion Reactions: No Reported Reaction Past Psychological History: No Psychological Hx Reported Smoking Status: Never smoker Past Alcohol Use History: Occasional Past Drug Use History: None Reported - Past Family History Father Family Medical History: Cancer Medications and Allergies Home Medications Medication Instructions Recorded Confirmed Type Carbidopa-Levodopa ER 50-200Mg 1 tab PO TID 10/20/17 02/25/23 History [Sinemet CR 50-200 mg] amantadine HCL [Symmetrel] 100 mg PO BID 10/20/17 02/25/23 History Entacapone 200 mg PO TID 06/25/22 02/25/23 History amLODIPine BESYLATE/BENAZEPRIL 1 cap PO DAILY 06/25/22 02/25/23 History [amLODIPine BESYLATE/BENAZEPRIL 5-10 mg] Ciprofloxacin HCl [Cipro] 500 mg PO BID 02/25/23 02/25/23 History Allergies Allergy/AdvReac Type Severity Reaction Status Date / Time No Known Allergies Allergy Verified 02/25/23 17:45 Physical Exam Vitals: Vital Signs Temp Pulse Resp BP Pulse Ox 02/27/23 03:55 88 16 138/72 100 02/26/23 23:52 98.7 F 117 H 16 160/79 100 02/26/23 19:50 98.8 F 106 H 18 151/67 96 02/26/23 14:48 98.7 F 152 H 16 150/78 96 02/26/23 14:00 152 H 16 02/26/23 12:00 99.5 F 112 H 20 130/65 02/26/23 11:44 115 H 16 151/69 97 Intake and Output 02/26/23 02/27/23 02/27/23 22:59 06:59 14:59 Intake Total 656.699 9972.125 Output Total 925 850 Balance -648.337 711.125 Intake: Intake, IV Titration 36.663 1561.125 Amount Dextrose 5% in Water 1, 1500 000 ml @ 125 mls/hr IV . Q8H [facility] Rx#:[id number] Heparin Sod,Pork in 0.45% 36.663 61.125 NaCl 25,000 unit In 0.45 % NaCl 1 250ml.bag @ 12 UNITS/KG/HR 7.26 mls/hr IV .Q24H [facility] Rx#: [id number] Oral 240 Output: Urine 925 850 Other: Voiding Method Indwelling Catheter Indwelling Catheter Results 02/27/23 10:18 02/26/23 16:17 Cardiac Enzymes 02/26/23 02/26/23 02/26/23 Range/Units 07:49 07:49 16:17 AST 37 40 (17-59) U/L Troponin I 4.600 H* (0.000-0.034) ng/mL Coagulation 02/26/23 02/26/23 02/26/23 Range/Units 11:36 16:17 23:56 PT 11.1 (9.0-12.0) sec APTT 22.9 39.2 H 31.8 H (22.0-30.0) sec CBC 02/26/23 02/26/23 Range/Units 07:49 11:36 WBC 12.8 H 13.0 H (3.8-10.6) k/uL RBC 3.74 L 3.86 L (4.30-5.90) m/uL Hgb 11.3 L 11.5 L (13.0-17.5) gm/dL Hct 34.1 L 34.9 L (39.0-53.0) % Plt Count 361 380 (150-450) k/uL Comprehensive Metabolic Panel 02/26/23 02/26/23 Range/Units 07:49 16:17 Sodium 157 H 158 H (137-145) mmol/L Potassium 4.9 3.9 (3.5-5.1) mmol/L Chloride 128 H 129 H (98-107) mmol/L Carbon Dioxide 17 L 20 L (22-30) mmol/L BUN 120 H* 88 H (9-20) mg/dL Creatinine 6.83 H 3.64 H (0.66-1.25) mg/dL Glucose 97 188 H (74-99) mg/dL Calcium 9.3 9.2 (8.4-10.2) mg/dL AST 37 40 (17-59) U/L ALT 12 24 (4-49) U/L Alkaline Phosphatase 103 96 (38-126) U/L Total Protein 6.2 L 6.1 L (6.3-8.2) g/dL Albumin 3.2 L 3.1 L (3.5-5.0) g/dL Current Medications Generic Name Dose Route Start Last Admin Trade Name Freq PRN Reason Stop Dose Admin Amlodipine Besylate 5 mg 02/26/23 11:45 02/26/23 14:45 Amlodipine 5 Mg Tab PO 5 mg DAILY KIM Administration Atorvastatin Calcium 40 mg 02/27/23 09:00 Atorvastatin 40 Mg Tab PO DAILY KIM Dextrose/Water 25 ml 02/26/23 18:07 Dextrose 50% Syringe 50 Ml IVP PER PROTOCOL PRN Hypoglycemia Protocol Dextrose/Water 50 ml 02/26/23 18:07 Dextrose 50% Syringe 50 Ml IVP PER PROTOCOL PRN Hypoglycemia Protocol Famotidine 20 mg 02/27/23 09:00 Famotidine 20 Mg Tab PO DAILY [facility] Haloperidol Lactate 2 mg 02/26/23 11:34 02/26/23 11:42 Haloperidol Lactate 5 Mg/Ml 1 Ml Vial IVP 2 mg Q8HR PRN Administration Agitation or Acute Psychosis Heparin Sodium (Porcine) 0 unit 02/26/23 10:22 02/27/23 01:00 Heparin Sodium 1,000 Un/Ml (10ml Vl) IV 3,025 unit PER PROTOCOL PRN Administration Low PTT Protocol Ceftriaxone Sodium 1 gm/ 50 mls @ 100 mls/hr 02/26/23 09:00 02/26/23 08:23 Sodium Chloride IVPB 100 mls/hr Q24HR KIM Administration Dextrose/Water 1,000 mls @ 125 mls/hr 02/26/23 10:15 02/27/23 04:05 Dextrose 5%-Water Iv Soln IV Not Given .Q8H [facility] Heparin Sodium/Sodium Chloride 250 mls @ 7.26 mls/hr 02/26/23 10:30 02/27/23 00:53 25,000 unit/ Sodium Chloride IV 17 units/kg/hr .Q24H KIM 10.285 mls/hr Titration Protocol 12 UNITS/KG/HR Insulin Aspart 0 unit 02/26/23 21:00 02/27/23 06:07 Insulin Aspart (Novolog) 100 Unit/Ml Vial SQ Not Given ACHS KIM Protocol Sodium Bicarbonate 650 mg 02/27/23 09:00 Sodium Bicarbonate Tab 650 Mg Tab PO DAILY KIM Tamsulosin HCl 0.4 mg 02/26/23 09:45 02/26/23 14:45 Tamsulosin 0.4 Mg Cap.Er.24h PO 0.4 mg [id number] KIM Administration Intake and Output 02/26/23 02/27/23 02/27/23 22:59 06:59 14:59 Intake Total 883.070 0650.125 Output Total 925 850 Balance -648.337 711.125 Intake: Intake, IV Titration 36.663 1561.125 Amount Dextrose 5% in Water 1, 1500 000 ml @ 125 mls/hr IV . Q8H [facility] Rx#:[id number] Heparin Sod,Pork in 0.45% 36.663 61.125 NaCl 25,000 unit In 0.45 % NaCl 1 250ml.bag @ 12 UNITS/KG/HR 7.26 mls/hr IV .Q24H [facility] Rx#: [id number] Oral 240 Output: Urine 925 850 Other: Voiding Method Indwelling Catheter Indwelling Catheter 02/26/23 11:36 02/26/23 16:17
[2023-02-27 11:46] LABS: Glucose,Whole Blood 145 mg/dL (70-110)
[2023-02-27 16:42] LABS: Glucose,Whole Blood 158 mg/dL (70-110)
[2023-02-27] MEDS: D5W WITH KCL 20 MEQ/L 1,000 ML IV SCH (17:35)
--- NOTE | 2023-02-27 18:29 | P.PN ---
Subjective Progress Note Date: 02/27/23 (Delayed charting seen at 1045) Patient is a 72-year-old male with Parkinson's, COPD, and hypertension who presented to the emergency department with multiple complaints including generalized weakness, confusion, and abnormal speech. Patient had developed urinary tract infection in [place] and was started on Cipro 8 days ago. He had worsened over the last 3 days and was seen in his PCPs office earlier on the day of admission and sent to the emergency department. In the emergency department the patient had urinary retention on bladder scan and had 1.8 L of urine removed upon Trivedi insertion. On arrival to the ER patient's vital signs were within normal limits. Laboratory analysis was remarkable for a white blood cell count of 20.8, hemoglobin 12.1, potassium 7.1, carbon dioxide 12, anion gap 19, BUN 207, creatinine 15.1, glucose of 108, urinalysis showed 84 white blood cells. Covid testing was negative. Troponin was mildly elevated at 0.46 in the ER he was given a dose of Rocephin. He was started on IV fluids. He was given potassium stabilizing agents. He was admitted for further monitoring. Urology and nephrology were consulted. He was having hallucinations and anxiety. His dopaminergic agents were held due to his overactivity. His fluids were transitioned to D5 as he developed hypernatremia. Imaging: CT head-mild atrophy, no acute intracranial abnormality Right lower extremity venous Doppler-negative for DVT Echocardiogram: Ejection fraction 50%, mild inferior hypokinesis, RVSP 39, mild to moderate tricuspid regurgitation Renal ultrasound: Simple renal cyst, no evidence of obstructive uropathy Patient seen and examined at bedside. He is much more alert today. He is following commands. He thinks the year is 2023, he believes it is December 29, but he knows he is in a hospital. He is able to tell us with the [facility] [place]. Vital signs reviewed General: nontoxic, no distress, appears at stated age, dry mucus membranes Cardiovascular: S1S2 reg, no murmur, positive posterior tibial pulse bilateral, Lungs: CTA bilateral, no rhonchi, no rales , no accessory muscle use Abdominal: soft, nontender to palpation, no guarding, no appreciable organomegaly Ext: no gross muscle atrophy, no edema, no contractures Neuro: CN II-XI grossly intact, no focal neuro deficits Psych: Alert, oriented (as above ), unable to sit still, overlystimulated. Assessment: Urinary tract infection, present prior to admission with sepsis Acute renal failure likely secondary to urinary retention Urinary retention status post insertion of Trivedi catheter with 1.8 L removed Hypernatremia Type II NSTEMI - Patient without dynamic changes on EKG, no ventricular arrhythmias, and no complaints of chest pain or shortness of breath High anion gap metabolic acidosis Acute metabolic encephalopathy with dystharia Hyperkalemia, resolved Hypoglycemia, resolved Chronic: COPD Hypertension Parkinson's disease Imaging: Echocardiogram: Ejection fraction 50%, mild inferior hypokinesis, RVSP 39, mild to moderate tricuspid regurgitation Renal ultrasound: Simple renal cyst, no evidence of obstructive uropathy Data Review: Laboratory remarkable for sodium 134, chloride 126, BUN 46, creatinine 1.75 Blood sugars are reviewed from yesterday and a.m. fasting was 166 today, last evening's blood sugars were 187 and 254 Vital signs reviewed from a.m. and temperature 98.5, pulse 70, respirations 18, blood pressure 128/76, O2 sat 96% on room air Culture: Urine culture negative Plan: -Nephrology note reviewed: Continue with D5 W, Trivedi catheter, Flomax -Cardiology note reviewed: They will sign off and felt that troponin likely due to acute kidney injury. - will need repeat BMP and CBC in AM givne infection, Hypernatremia, and CATHERINE - Continue with Norvasc 5 mg daily, Lipitor 40 mg daily, Pepcid 20 mg daily -Haldol 2 mg every 8 hours as needed for agitation -Continue with sliding scale insulin -Continue with sodium bicarb and Flomax -Suspect that urine culture is negative as patient had antibiotics prior to admission at the hospital. Given that he had a 4 white blood cells in his urine on arrival anticipate there still may be some an infectious etiology. Continue with Rocephin day #2 to complete a total of 3 days of therapy. -Continue to hold Sinemet, amantadine, entacapone DVT prophylaxis: Heparin gtt Anticipated discharge date: Pending Clinical course Anticipated discharge place: Pending Clinical course This dictation was prepared using [employer] voice recognition software. Though every attempt is made to correct errors during during dictation some may still exist. Objective - Vital Signs Vital signs: Vital Signs Temp 98.2 F 02/27/23 16:00 Pulse 74 02/27/23 16:00 Resp 14 02/27/23 16:00 BP 146/80 02/27/23 16:00 Pulse Ox 99 02/27/23 16:00 FiO2 Intake & Output 02/26/23 02/27/23 02/27/23 18:59 06:59 18:59 Intake Total 560.152 6469.125 1895.421 Output Total 2900 850 Balance -2503.337 742.373 5819.421 Weight 60.5 kg Intake: Intake, IV Titration 36.663 7157.256 1562.421 Amount Dextrose 5% in Water 1, 1500 1000 000 ml @ 125 mls/hr IV . Q8H [facility] Rx#:[id number] Heparin Sod,Pork in 0.45% 36.663 61.125 105.421 NaCl 25,000 unit In 0.45 % NaCl 1 250ml.bag @ 12 UNITS/KG/HR 7.26 mls/hr IV .Q24H [facility] Rx#: [id number] cefTRIAXone 1 gm In 50 Sodium Chloride 0.9% 50 ml @ 100 mls/hr IVPB Q24HR [facility] Rx#:[id number] Oral 360 740 Output: Urine 2900 850 Other: Voiding Method Indwelling Catheter Indwelling Catheter Indwelling Catheter - Labs CBC & Chem 7: 02/27/23 10:18 02/27/23 10:18 Labs: Abnormal Lab Results - Last 24 Hours (Table) 02/26/23 02/26/23 02/27/23 Range/Units 20:05 23:56 06:00 RBC (4.30-5.90) m/uL Hgb (13.0-17.5) gm/dL Hct (39.0-53.0) % Neutrophils # (1.3-7.7) k/uL Lymphocytes # (1.0-4.8) k/uL APTT 31.8 H (22.0-30.0) sec Sodium (137-145) mmol/L Chloride (98-107) mmol/L BUN (9-20) mg/dL Creatinine (0.66-1.25) mg/dL Glucose (74-99) mg/dL POC Glucose (mg/dL) 187 H 166 H (70-110) mg/dL 02/27/23 02/27/23 02/27/23 Range/Units 10:18 10:18 10:18 RBC 3.85 L (4.30-5.90) m/uL Hgb 11.5 L (13.0-17.5) gm/dL Hct 35.1 L (39.0-53.0) % Neutrophils # 8.1 H (1.3-7.7) k/uL Lymphocytes # 0.6 L (1.0-4.8) k/uL APTT 38.7 H (22.0-30.0) sec Sodium 154 H (137-145) mmol/L Chloride 126 H (98-107) mmol/L BUN 46 H (9-20) mg/dL Creatinine 1.75 H (0.66-1.25) mg/dL Glucose 135 H (74-99) mg/dL POC Glucose (mg/dL) (70-110) mg/dL 02/27/23 02/27/23 Range/Units 11:41 16:40 RBC (4.30-5.90) m/uL Hgb (13.0-17.5) gm/dL Hct (39.0-53.0) % Neutrophils # (1.3-7.7) k/uL Lymphocytes # (1.0-4.8) k/uL APTT (22.0-30.0) sec Sodium (137-145) mmol/L Chloride (98-107) mmol/L BUN (9-20) mg/dL Creatinine (0.66-1.25) mg/dL Glucose (74-99) mg/dL POC Glucose (mg/dL) 145 H 158 H (70-110) mg/dL Microbiology - Last 24 Hours (Table) 02/25/23 17:45 Blood Culture - Preliminary Blood No Growth after 24 hours 02/25/23 17:30 Blood Culture - Preliminary Blood No Growth after 24 hours 02/25/23 18:19 Urine Culture - Final Urine,Catheterized
[2023-02-27 20:05] LABS: Glucose,Whole Blood 136 mg/dL (70-110)
[2023-02-28] MEDS: D5W WITH KCL 20 MEQ/L 1,000 ML IV SCH ×2 (01:06→10:12)
[2023-02-28 06:06] LABS: Glucose,Whole Blood 139 mg/dL (70-110)
[2023-02-28] MEDS: INSULIN ASPART (NovoLOG) 100 UNIT/ML VIAL SQ SCH ×4 (06:16→21:04)
[2023-02-28] MEDS: TAMSULOSIN 0.4 MG CAP.ER.24H PO SCH (08:16)
[2023-02-28] MEDS: FAMOTIDINE 20 MG TAB PO SCH (08:16)
[2023-02-28] MEDS: ATORVASTATIN 40 MG TAB PO SCH (08:16)
[2023-02-28] MEDS: amLODIPine 5 MG TAB PO SCH (08:16)
[2023-02-28] MEDS: SODIUM BICARBONATE TAB 650 MG TAB PO SCH (08:17)
[2023-02-28] MEDS: HEPARIN SOD,PORK IN 0.45% NACL 25,000 UNIT in 0.45% NACL 1 250ML.BAG IV SCH (08:26)
[2023-02-28 08:31] LABS: HCT 33.7 % (39.0-53.0); HGB 11.3 gm/dL (13.0-17.5); MCH 30.4 pg (25.0-35.0); MCHC 33.5 g/dL (31.0-37.0); MCV 90.9 fL (80.0-100.0); Mean Platelet Volume 7.6; Platelet Count 339 k/uL (150-450); RDW 12.6 % (11.5-15.5); WBC 8.6 k/uL (3.8-10.6)
[2023-02-28 09:05] LABS: Potassium 3.8 mmol/L (3.5-5.1)
--- NOTE | 2023-02-28 09:41 | P.PN ---
Subjective Progress Note Date: 02/28/23 Patient is in the hospital for urine infection in urine retention. He has advanced Parkinson's. He was in [place] when he developed infection and probably went in urine retention either in [place] or and wrote back to [place]. He has an indwelling catheter with light tea-colored urine. It should remain in another week or so and can be removed in the office. Objective - Vital Signs Vital signs: Vital Signs Temp 98.9 F 02/28/23 08:14 Pulse 73 02/28/23 08:14 Resp 18 02/28/23 08:14 BP 133/66 02/28/23 08:14 Pulse Ox 96 02/28/23 08:14 FiO2 Intake & Output 02/27/23 02/28/23 02/28/23 18:59 06:59 18:59 Intake Total 8758.988 5157.059 540 Output Total 2450 Balance 1895.421 -1021.941 540 Weight 57.5 kg Intake: Intake, IV Titration 7061.089 5277.059 Amount D5w with KCl 20 Meq/l 1, 1200 000 ml @ 100 mls/hr IV . Q10H KIM Rx#:[id number] Dextrose 5% in Water 1, 1000 000 ml @ 125 mls/hr IV . Q8H KIM Rx#:[id number] Heparin Sod,Pork in 0.45% 105.421 228.059 NaCl 25,000 unit In 0.45 % NaCl 1 250ml.bag @ 12 UNITS/KG/HR 7.26 mls/hr IV .Q24H KIM Rx#: [id number] cefTRIAXone 1 gm In 50 Sodium Chloride 0.9% 50 ml @ 100 mls/hr IVPB Q24HR KIM Rx#:[id number] Oral 740 540 Output: Urine 2450 Other: Voiding Method Indwelling Catheter Indwelling Catheter - Labs CBC & Chem 7: 02/28/23 08:04 02/28/23 08:04 Labs: Abnormal Lab Results - Last 24 Hours (Table) 02/27/23 02/27/23 02/27/23 Range/Units 10:18 10:18 10:18 RBC 3.85 L (4.30-5.90) m/uL Hgb 11.5 L (13.0-17.5) gm/dL Hct 35.1 L (39.0-53.0) % Neutrophils # 8.1 H (1.3-7.7) k/uL Lymphocytes # 0.6 L (1.0-4.8) k/uL APTT 38.7 H (22.0-30.0) sec Sodium 154 H (137-145) mmol/L Chloride 126 H (98-107) mmol/L BUN 46 H (9-20) mg/dL Creatinine 1.75 H (0.66-1.25) mg/dL Glucose 135 H (74-99) mg/dL POC Glucose (mg/dL) (70-110) mg/dL Calcium (8.4-10.2) mg/dL 02/27/23 02/27/23 02/27/23 Range/Units 11:41 16:40 18:16 RBC (4.30-5.90) m/uL Hgb (13.0-17.5) gm/dL Hct (39.0-53.0) % Neutrophils # (1.3-7.7) k/uL Lymphocytes # (1.0-4.8) k/uL APTT 40.5 H (22.0-30.0) sec Sodium (137-145) mmol/L Chloride (98-107) mmol/L BUN (9-20) mg/dL Creatinine (0.66-1.25) mg/dL Glucose (74-99) mg/dL POC Glucose (mg/dL) 145 H 158 H (70-110) mg/dL Calcium (8.4-10.2) mg/dL 02/27/23 02/28/23 02/28/23 Range/Units 20:03 01:15 06:04 RBC (4.30-5.90) m/uL Hgb (13.0-17.5) gm/dL Hct (39.0-53.0) % Neutrophils # (1.3-7.7) k/uL Lymphocytes # (1.0-4.8) k/uL APTT 44.6 H (22.0-30.0) sec Sodium (137-145) mmol/L Chloride (98-107) mmol/L BUN (9-20) mg/dL Creatinine (0.66-1.25) mg/dL Glucose (74-99) mg/dL POC Glucose (mg/dL) 136 H 139 H (70-110) mg/dL Calcium (8.4-10.2) mg/dL 02/28/23 02/28/23 Range/Units 08:04 08:04 RBC 3.70 L (4.30-5.90) m/uL Hgb 11.3 L (13.0-17.5) gm/dL Hct 33.7 L (39.0-53.0) % Neutrophils # (1.3-7.7) k/uL Lymphocytes # (1.0-4.8) k/uL APTT (22.0-30.0) sec Sodium (137-145) mmol/L Chloride 115 H (98-107) mmol/L BUN 24 H (9-20) mg/dL Creatinine (0.66-1.25) mg/dL Glucose 125 H (74-99) mg/dL POC Glucose (mg/dL) (70-110) mg/dL Calcium 8.0 L (8.4-10.2) mg/dL Microbiology - Last 24 Hours (Table) 02/25/23 17:45 Blood Culture - Preliminary Blood No Growth after 48 hours 02/25/23 17:30 Blood Culture - Preliminary Blood No Growth after 48 hours Assessment and Plan (1) Gross hematuria Current Visit: Yes Status: Acute Code(s): R31.0 - GROSS HEMATURIA SNOMED Code(s): 338449703 Plan: Recommendations: The catheter should remain in place and can be removed in the office in about a week.
[2023-02-28 12:00] LABS: Glucose,Whole Blood 107 mg/dL (70-110)
[2023-02-28] MEDS: CARBIDOPA-LEVODOPA ER 50-200MG 1 EACH TABLET.ER PO SCH ×3 (12:36→21:03)
[2023-02-28] MEDS: ENTACAPONE 200 MG TAB PO SCH ×2 (12:37→21:03)
--- NOTE | 2023-02-28 14:02 | P.PN ---
Subjective Progress Note Date: 02/28/23 Patient is a 72-year-old male with Parkinson's, COPD, and hypertension who presented to the emergency department with multiple complaints including generalized weakness, confusion, and abnormal speech. Patient had developed urinary tract infection in [place] and was started on Cipro 8 days ago. He had worsened over the last 3 days and was seen in his PCPs office earlier on the day of admission and sent to the emergency department. In the emergency department the patient had urinary retention on bladder scan and had 1.8 L of urine removed upon Trivedi insertion. On arrival to the ER patient's vital signs were within normal limits. Laboratory analysis was remarkable for a white blood cell count of 20.8, hemoglobin 12.1, potassium 7.1, carbon dioxide 12, anion gap 19, BUN 207, creatinine 15.1, glucose of 108, urinalysis showed 84 white blood cells. Covid testing was negative. Troponin was mildly elevated at 0.46 in the ER he was given a dose of Rocephin. He was started on IV fluids. He was given potassium stabilizing agents. He was admitted for further monitoring. Urology and nephrology were consulted. He was having hallucinations and anxiety. His dopaminergic agents were held due to his overactivity. His fluids were transitioned to D5 as he developed hypernatremia. On 02/27/23 he developed gross hematuria. Patient seen and examined at bedside. He is much more alert today, though he talks with his eyes closed. He is less hyperactive. He is aware that he is in a hospital and that it is 2022. He struggled with the month and exact location of the hospital. He denies any pain or nausea. Vital signs reviewed General: nontoxic, no distress, appears at stated age Cardiovascular: S1S2 reg, no murmur, positive posterior tibial pulse bilateral, Lungs: CTA bilateral, no rhonchi, no rales , no accessory muscle use Abdominal: soft, nontender to palpation, no guarding, no appreciable organomegaly Ext: no gross muscle atrophy, no edema, no contractures Neuro: CN II-XI grossly intact, no focal neuro deficits, resting tremor noted in left arm and right leg Psych: Alert, oriented, appropriate affect Assessment: Urinary tract infection, present prior to admission with sepsis Acute renal failure likely secondary to urinary retention Urinary retention status post insertion of Trivedi catheter with 1.8 L removed Type II NSTEMI - Patient without dynamic changes on EKG, no ventricular arrhythmias, and no com plaints of chest pain or shortness of breath Acute metabolic encephalopathy with dystharia resolved: Hypernatremia Hyperkalemia Hypoglycemia High anion gap metabolic acidosis Chronic: COPD Hypertension Parkinson's disease Gross hematuria Hypernatremia, resolved Imaging: None additional Data Review: Vital signs: Temperature 98.9, pulse 73, respirations 18, blood pressure 133/66, O2 sat 96% on room air Laboratory analysis remarkable for hemoglobin 11.3, sodium 143, chloride 115, BUN 24, creatinine 1.1 Plan: - Stop D5 W gtt, encourage oral intake -Restart entacapone 200 mg twice daily, amantadine 100 mg twice daily, and Sinemet 3 times daily -Urology note reviewed: Maintain catheter, can be removed in the office in approximately one week. -Await further nephrology recommendations -Repeat CBC and BMP in a.m. -- Continue with Norvasc 5 mg daily, Lipitor 40 mg daily, Pepcid 20 mg daily -Haldol 2 mg every 8 hours as needed for agitation -Continue with sliding scale insulin -Continue with sodium bicarb and Flomax -Discontinue Rocephin as patient has completed a 3 day course and urine culture was negative. - stop heparin gtt, start lovenox DVT prophylaxis: Lovenox Anticipated discharge date: Pending clinical course Anticipated discharge place: Pending clinical course This dictation was prepared using [employer] voice recognition software. Though every attempt is made to correct errors during during dictation some may still exist. Objective - Vital Signs Vital signs: Vital Signs Temp 98.9 F 02/28/23 08:14 Pulse 73 02/28/23 10:37 Resp 18 02/28/23 10:37 BP 133/66 02/28/23 08:14 Pulse Ox 96 02/28/23 08:14 FiO2 Intake & Output 02/27/23 02/28/23 02/28/23 18:59 06:59 18:59 Intake Total 8611.231 8857.059 660 Output Total 2450 Balance 1895.421 -1021.941 660 Weight 57.5 kg Intake: Intake, IV Titration 1384.534 8078.059 Amount D5w with KCl 20 Meq/l 1, 1200 000 ml @ 100 mls/hr IV . Q10H KIM Rx#:[id number] Dextrose 5% in Water 1, 1000 000 ml @ 125 mls/hr IV . Q8H KIM Rx#:[id number] Heparin Sod,Pork in 0.45% 105.421 228.059 NaCl 25,000 unit In 0.45 % NaCl 1 250ml.bag @ 12 UNITS/KG/HR 7.26 mls/hr IV .Q24H KIM Rx#: [id number] cefTRIAXone 1 gm In 50 Sodium Chloride 0.9% 50 ml @ 100 mls/hr IVPB Q24HR KIM Rx#:[id number] Oral 740 660 Output: Urine 2450 Other: Voiding Method Indwelling Catheter Indwelling Catheter Indwelling Catheter - Labs CBC & Chem 7: 02/28/23 08:04 02/28/23 08:04 Labs: Abnormal Lab Results - Last 24 Hours (Table) 02/27/23 02/27/23 02/27/23 Range/Units 16:40 18:16 20:03 RBC (4.30-5.90) m/uL Hgb (13.0-17.5) gm/dL Hct (39.0-53.0) % APTT 40.5 H (22.0-30.0) sec Chloride (98-107) mmol/L BUN (9-20) mg/dL Glucose (74-99) mg/dL POC Glucose (mg/dL) 158 H 136 H (70-110) mg/dL Calcium (8.4-10.2) mg/dL 02/28/23 02/28/23 02/28/23 Range/Units 01:15 06:04 08:04 RBC 3.70 L (4.30-5.90) m/uL Hgb 11.3 L (13.0-17.5) gm/dL Hct 33.7 L (39.0-53.0) % APTT 44.6 H (22.0-30.0) sec Chloride (98-107) mmol/L BUN (9-20) mg/dL Glucose (74-99) mg/dL POC Glucose (mg/dL) 139 H (70-110) mg/dL Calcium (8.4-10.2) mg/dL 02/28/23 Range/Units 08:04 RBC (4.30-5.90) m/uL Hgb (13.0-17.5) gm/dL Hct (39.0-53.0) % APTT (22.0-30.0) sec Chloride 115 H (98-107) mmol/L BUN 24 H (9-20) mg/dL Glucose 125 H (74-99) mg/dL POC Glucose (mg/dL) (70-110) mg/dL Calcium 8.0 L (8.4-10.2) mg/dL Microbiology - Last 24 Hours (Table) 02/25/23 17:45 Blood Culture - Preliminary Blood No Growth after 48 hours 02/25/23 17:30 Blood Culture - Preliminary Blood No Growth after 48 hours
--- NOTE | 2023-02-28 14:51 | P.PN ---
Subjective Progress Note Date: 02/28/23 Follow-up for acute kidney injury and hyperkalemia. Urine output of 2.4 L in the last 24 hours Objective - Vital Signs Vital signs: Vital Signs Temp 98.9 F 02/28/23 08:14 Pulse 73 02/28/23 10:37 Resp 18 02/28/23 10:37 BP 133/66 02/28/23 08:14 Pulse Ox 96 02/28/23 08:14 FiO2 Intake & Output 02/27/23 02/28/23 02/28/23 18:59 06:59 18:59 Intake Total 0387.997 8140.059 660 Output Total 2450 Balance 1895.421 -1021.941 660 Weight 57.5 kg Intake: Intake, IV Titration 2104.401 9633.059 Amount D5w with KCl 20 Meq/l 1, 1200 000 ml @ 100 mls/hr IV . Q10H KIM Rx#:[id number] Dextrose 5% in Water 1, 1000 000 ml @ 125 mls/hr IV . Q8H KIM Rx#:[id number] Heparin Sod,Pork in 0.45% 105.421 228.059 NaCl 25,000 unit In 0.45 % NaCl 1 250ml.bag @ 12 UNITS/KG/HR 7.26 mls/hr IV .Q24H KIM Rx#: [id number] cefTRIAXone 1 gm In 50 Sodium Chloride 0.9% 50 ml @ 100 mls/hr IVPB Q24HR KIM Rx#:[id number] Oral 740 660 Output: Urine 2450 Other: Voiding Method Indwelling Catheter Indwelling Catheter Indwelling Catheter - Exam No acute distress S1-S2 heard Decreased breath sounds Trivedi Edema - Labs CBC & Chem 7: 02/28/23 08:04 02/28/23 08:04 Labs: Abnormal Lab Results - Last 24 Hours (Table) 02/27/23 02/27/23 02/27/23 Range/Units 16:40 18:16 20:03 RBC (4.30-5.90) m/uL Hgb (13.0-17.5) gm/dL Hct (39.0-53.0) % APTT 40.5 H (22.0-30.0) sec Chloride (98-107) mmol/L BUN (9-20) mg/dL Glucose (74-99) mg/dL POC Glucose (mg/dL) 158 H 136 H (70-110) mg/dL Calcium (8.4-10.2) mg/dL 02/28/23 02/28/23 02/28/23 Range/Units 01:15 06:04 08:04 RBC 3.70 L (4.30-5.90) m/uL Hgb 11.3 L (13.0-17.5) gm/dL Hct 33.7 L (39.0-53.0) % APTT 44.6 H (22.0-30.0) sec Chloride (98-107) mmol/L BUN (9-20) mg/dL Glucose (74-99) mg/dL POC Glucose (mg/dL) 139 H (70-110) mg/dL Calcium (8.4-10.2) mg/dL 02/28/23 Range/Units 08:04 RBC (4.30-5.90) m/uL Hgb (13.0-17.5) gm/dL Hct (39.0-53.0) % APTT (22.0-30.0) sec Chloride 115 H (98-107) mmol/L BUN 24 H (9-20) mg/dL Glucose 125 H (74-99) mg/dL POC Glucose (mg/dL) (70-110) mg/dL Calcium 8.0 L (8.4-10.2) mg/dL Microbiology - Last 24 Hours (Table) 02/25/23 17:45 Blood Culture - Preliminary Blood No Growth after 48 hours 02/25/23 17:30 Blood Culture - Preliminary Blood No Growth after 48 hours Assessment and Plan Assessment: #1 acute kidney injury secondary to obstructive uropathy. -Baseline creatinine unknown, admission creatinine of 15. #2 hyperkalemia secondary to obstructive uropathy and acute kidney injury. #3 non-gap metabolic acidosis #4 hyponatremia secondary to water deficit Plan: #1 creatinine improving. #2 volume management per urology. #3 discontinue sodium bicarbonate #4 stable from nephrology for discharge
[2023-02-28 16:59] LABS: Glucose,Whole Blood 164 mg/dL (70-110)
[2023-02-28] MEDS: bisacodyL 5 MG TABLET.DR PO PRN (17:27)
[2023-02-28 19:53] LABS: Glucose,Whole Blood 131 mg/dL (70-110)
[2023-03-01 06:20] LABS: Glucose,Whole Blood 117 mg/dL (70-110)
[2023-03-01] MEDS: INSULIN ASPART (NovoLOG) 100 UNIT/ML VIAL SQ SCH ×4 (06:23→20:19)
[2023-03-01] MEDS: CARBIDOPA-LEVODOPA ER 50-200MG 1 EACH TABLET.ER PO SCH ×3 (08:19→20:20)
[2023-03-01] MEDS: ATORVASTATIN 40 MG TAB PO SCH (08:19)
[2023-03-01] MEDS: TAMSULOSIN 0.4 MG CAP.ER.24H PO SCH (08:19)
[2023-03-01] MEDS: ENTACAPONE 200 MG TAB PO SCH ×2 (08:20→20:20)
[2023-03-01] MEDS: FAMOTIDINE 20 MG TAB PO SCH (08:20)
[2023-03-01] MEDS: amLODIPine 5 MG TAB PO SCH (08:20)
[2023-03-01] MEDS: ENOXAPARIN 40 MG/0.4 ML SYRINGE SQ SCH ×2 (08:21→12:06)
[2023-03-01 09:09] LABS: HCT 34.8 % (39.0-53.0); HGB 11.7 gm/dL (13.0-17.5); MCH 30.3 pg (25.0-35.0); MCHC 33.5 g/dL (31.0-37.0); MCV 90.7 fL (80.0-100.0); Mean Platelet Volume 8.1; Platelet Count 353 k/uL (150-450); RBC 3.84 m/uL (4.30-5.90); RDW 12.7 % (11.5-15.5); WBC 8.4 k/uL (3.8-10.6)
[2023-03-01 09:22] LABS: Calcium 8.5 mg/dL (8.4-10.2); Magnesium 1.9 mg/dL (1.6-2.3); Potassium 4.1 mmol/L (3.5-5.1)
[2023-03-01 12:14] LABS: Glucose,Whole Blood 113 mg/dL (70-110)
--- NOTE | 2023-03-01 12:51 | P.PN ---
Subjective Progress Note Date: 03/01/23 Patient is a 72-year-old male with Parkinson's, COPD, and hypertension who presented to the emergency department with multiple complaints including generalized weakness, confusion, and abnormal speech. Patient had developed urinary tract infection in [place] and was started on Cipro 8 days ago. He had worsened over the last 3 days and was seen in his PCPs office earlier on the day of admission and sent to the emergency department. In the emergency department the patient had urinary retention on bladder scan and had 1.8 L of urine removed upon Trivedi insertion. On arrival to the ER patient's vital signs were within normal limits. Laboratory analysis was remarkable for a white blood cell count of 20.8, hemoglobin 12.1, potassium 7.1, carbon dioxide 12, anion gap 19, BUN 207, creatinine 15.1, glucose of 108, urinalysis showed 84 white blood cells. Covid testing was negative. Troponin was mildly elevated at 0.46 in the ER he was given a dose of Rocephin. He was started on IV fluids. He was given potassium stabilizing agents. He was admitted for further monitoring. Urology and nephrology were consulted. He was having hallucinations and anxiety. His dopaminergic agents were held due to his hyperactivity. His fluids were transitioned to D5 as he developed hypernatremia. On 02/27/23 he developed gross hematuria. His renal function and sodium levels continue to improve. He was able to come off of IV fluids. His Parkinson's medications were restarted and his sensorium cleared. Patient seen and examined at bedside. He is much more awake and alert today. He is able to tell me that he is in the hospital, that he came in for a urinary tract infection and that he almost . Denies any chest pain, shortness breath, nausea, vomiting. He does admit to feeling significantly weak. He states he was having the weirdest dreams during this time. We discussed that he has a Trivedi catheter in place and then I will need to remain in place for 1 week and he'll follow-up as an outpatient for voiding trial. Vital signs reviewed General: nontoxic, no distress, appears at stated age Cardiovascular: S1S2 reg, no murmur, positive posterior tibial pulse bilateral, Lungs: CTA bilateral, no rhonchi, no rales , no accessory muscle use Abdominal: soft, nontender to palpation, no guarding, no appreciable organomegaly Ext: no gross muscle atrophy, no edema, no contractures Neuro: CN II-XI grossly intact, no focal neuro deficits, resting tremor noted in left arm and right leg Psych: Alert, oriented X 3, appropriate affect Assessment: Urinary tract infection, present prior to admission with sepsis- antibiotics co mpleted Acute renal failure likely secondary to urinary retention Urinary retention status post insertion of Trivedi catheter with 1.8 L removed Type II NSTEMI - Patient without dynamic changes on EKG, no ventricular arrhythmias, and no complaints of chest pain or shortness of breath Acute metabolic encephalopathy with dystharia resolved: Hypernatremia Hyperkalemia Hypoglycemia High anion gap metabolic acidosis Chronic: COPD Hypertension Parkinson's disease Gross hematuria Hypernatremia, resolved Imaging: None additional Data Review: Vital signs from this morning temperature 98.2, pulse 70, respirations 18, blood pressure 135/63, O2 sat 97% room air Laboratory analysis remarkable for hemoglobin of 11.7, chloride 112, BUN 23, creatinine 1.14, glucose 105. Magnesium 1.9 Blood sugars reviewed and fasting was 117 this morning. Last night they were 131 and 164. Plan: -Continue entacapone 200 mg twice daily, amantadine 100 mg twice daily, and Sinemet 3 times daily -Urology note reviewed: Maintain catheter, can be removed in the office in approximately one week. -Outpatient cardiology follow-up given increased troponin, they have signed off -Nephrology note reviewed from 02/28 and patient was cleared for discharge from nephrology -Repeat BMP in a.m. - Continue with Norvasc 5 mg daily, anticipate home on Norvasc without Benzapril as blood pressures have been well controlled during hospital stay - Lipitor 40 mg daily, Pepcid 20 mg daily -Continue with sliding scale insulin -Continue with Flomax -Patient is significantly weak per nursing. We will have patient reevaluated by PT and OT in the morning with improved mentation. If does well could be sent home with home health if not consider fdc facility on discharge DVT prophylaxis: Lovenox Anticipated discharge date: Likely in AM Anticipated discharge place: home with home health vs SNF This dictation was prepared using [employer] voice recognition software. Though every attempt is made to correct errors during during dictation some may still exist. Objective - Vital Signs Vital signs: Vital Signs Temp 98.2 F 03/01/23 08:09 Pulse 80 03/01/23 12:05 Resp 18 03/01/23 12:05 BP 119/63 03/01/23 12:05 Pulse Ox 98 03/01/23 12:05 FiO2 Intake & Output 02/28/23 03/01/23 03/01/23 18:59 06:59 18:59 Intake Total 780 760 Output Total 306 274 6323 Balance -20 -400 -1440 Intake: Oral 780 760 Output: Urine 105 786 1438 Uretheral (Trivedi) 1100 Other: Voiding Method Indwelling Catheter Indwelling Catheter Indwelling Catheter - Labs CBC & Chem 7: 03/01/23 08:09 03/01/23 08:09 Labs: Abnormal Lab Results - Last 24 Hours (Table) 02/28/23 02/28/23 03/01/23 Range/Units 16:56 19:51 06:18 RBC (4.30-5.90) m/uL Hgb (13.0-17.5) gm/dL Hct (39.0-53.0) % Chloride (98-107) mmol/L BUN (9-20) mg/dL Glucose (74-99) mg/dL POC Glucose (mg/dL) 164 H 131 H 117 H (70-110) mg/dL 03/01/23 03/01/23 03/01/23 Range/Units 08:09 08:09 12:12 RBC 3.84 L (4.30-5.90) m/uL Hgb 11.7 L (13.0-17.5) gm/dL Hct 34.8 L (39.0-53.0) % Chloride 114 H (98-107) mmol/L BUN 23 H (9-20) mg/dL Glucose 105 H (74-99) mg/dL POC Glucose (mg/dL) 113 H (70-110) mg/dL Microbiology - Last 24 Hours (Table) 02/25/23 17:45 Blood Culture - Preliminary Blood No Growth after 72 hours 02/25/23 17:30 Blood Culture - Preliminary Blood No Growth after 72 hours
--- NOTE | 2023-03-01 15:20 | P.PN ---
Subjective Progress Note Date: 03/01/23 Follow-up for acute kidney injury and hyperkalemia. Urine output of 2.2 L in the last 24 hours Objective - Vital Signs Vital signs: Vital Signs Temp 98.2 F 03/01/23 08:09 Pulse 80 03/01/23 12:05 Resp 18 03/01/23 12:05 BP 119/63 03/01/23 12:05 Pulse Ox 98 03/01/23 12:05 FiO2 Intake & Output 02/28/23 03/01/23 03/01/23 18:59 06:59 18:59 Intake Total 780 1300 Output Total 624 470 8694 Balance -20 -400 -900 Intake: Oral 780 1300 Output: Urine 135 743 3597 Uretheral (Martin) 1100 Other: Voiding Method Indwelling Catheter Indwelling Catheter Indwelling Catheter - Exam No acute distress S1-S2 heard Decreased breath sounds Martin Edema - Labs CBC & Chem 7: 03/01/23 08:09 03/01/23 08:09 Labs: Abnormal Lab Results - Last 24 Hours (Table) 02/28/23 02/28/23 03/01/23 Range/Units 16:56 19:51 06:18 RBC (4.30-5.90) m/uL Hgb (13.0-17.5) gm/dL Hct (39.0-53.0) % Chloride (98-107) mmol/L BUN (9-20) mg/dL Glucose (74-99) mg/dL POC Glucose (mg/dL) 164 H 131 H 117 H (70-110) mg/dL 03/01/23 03/01/23 03/01/23 Range/Units 08:09 08:09 12:12 RBC 3.84 L (4.30-5.90) m/uL Hgb 11.7 L (13.0-17.5) gm/dL Hct 34.8 L (39.0-53.0) % Chloride 114 H (98-107) mmol/L BUN 23 H (9-20) mg/dL Glucose 105 H (74-99) mg/dL POC Glucose (mg/dL) 113 H (70-110) mg/dL Microbiology - Last 24 Hours (Table) 02/25/23 17:45 Blood Culture - Preliminary Blood No Growth after 72 hours 02/25/23 17:30 Blood Culture - Preliminary Blood No Growth after 72 hours Assessment and Plan Assessment: #1 acute kidney injury secondary to obstructive uropathy. -Baseline creatinine unknown, admission creatinine of 15. #2 hyperkalemia secondary to obstructive uropathy and acute kidney injury. #3 non-gap metabolic acidosis #4 hyponatremia secondary to water deficit Plan: #1 creatinine improving. #2 martin management per urology. #3 stable from nephrology for discharge
[2023-03-01 16:57] LABS: Glucose,Whole Blood 127 mg/dL (70-110)
[2023-03-01] MEDS: bisacodyL 5 MG TABLET.DR PO PRN (17:16)
[2023-03-01 20:13] LABS: Glucose,Whole Blood 137 mg/dL (70-110)
[2023-03-01] MEDS: SYMBICORT 80-4.5 MCG INHALER INHALATION SCH (20:52)
[2023-03-02 06:01] LABS: Glucose,Whole Blood 122 mg/dL (70-110)
[2023-03-02] MEDS: INSULIN ASPART (NovoLOG) 100 UNIT/ML VIAL SQ SCH ×2 (06:05→12:58)
[2023-03-02] MEDS: CARBIDOPA-LEVODOPA ER 50-200MG 1 EACH TABLET.ER PO SCH ×2 (08:56→16:09)
[2023-03-02] MEDS: amLODIPine 5 MG TAB PO SCH (08:56)
[2023-03-02] MEDS: FAMOTIDINE 20 MG TAB PO SCH (08:56)
[2023-03-02] MEDS: ATORVASTATIN 40 MG TAB PO SCH (08:56)
[2023-03-02] MEDS: TAMSULOSIN 0.4 MG CAP.ER.24H PO SCH (08:56)
[2023-03-02] MEDS: ENOXAPARIN 40 MG/0.4 ML SYRINGE SQ SCH (08:57)
[2023-03-02] MEDS: ENTACAPONE 200 MG TAB PO SCH (08:57)
[2023-03-02] MEDS: SYMBICORT 80-4.5 MCG INHALER INHALATION SCH (09:17)
[2023-03-02 09:49] LABS: Calcium 8.5 mg/dL (8.4-10.2); Potassium 4.2 mmol/L (3.5-5.1)
--- NOTE | 2023-03-02 10:36 | P.PN ---
Subjective Patient is seen in follow-up for acute kidney injury. Renal function significantly improved from admission. Has Trivedi catheter. Nonoliguric. Oral intake fair. No active complaints. Vital signs are stable. General: No acute distress. HEENT: Head exam is unremarkable. LUNGS: No audible rhonchi or wheezes. HEART: Rate and Rhythm are regular. ABDOMEN: No distention. EXTREMITITES: No edema. Objective - Vital Signs Vital signs: Vital Signs Temp 98.6 F 03/02/23 08:59 Pulse 72 03/02/23 08:59 Resp 17 03/02/23 08:59 BP 149/80 03/02/23 08:59 Pulse Ox 98 03/02/23 09:17 FiO2 21 03/02/23 09:17 Intake & Output 03/01/23 03/02/23 03/02/23 18:59 06:59 18:59 Intake Total 1840 120 Output Total 2200 1125 Balance -360 -1125 120 Intake: Oral 1840 120 Output: Urine 2200 1125 Uretheral (Trivedi) 1100 Other: Voiding Method Indwelling Catheter Indwelling Catheter Indwelling Catheter - Labs CBC & Chem 7: 03/01/23 08:09 03/02/23 09:08 Labs: Abnormal Lab Results - Last 24 Hours (Table) 03/01/23 03/01/23 03/01/23 Range/Units 12:12 16:56 20:11 Chloride (98-107) mmol/L BUN (9-20) mg/dL Glucose (74-99) mg/dL POC Glucose (mg/dL) 113 H 127 H 137 H (70-110) mg/dL 03/02/23 03/02/23 Range/Units 06:00 09:08 Chloride 110 H (98-107) mmol/L BUN 22 H (9-20) mg/dL Glucose 116 H (74-99) mg/dL POC Glucose (mg/dL) 122 H (70-110) mg/dL Microbiology - Last 24 Hours (Table) 02/25/23 17:45 Blood Culture - Preliminary Blood No Growth after 96 hours 02/25/23 17:30 Blood Culture - Preliminary Blood No Growth after 96 hours Assessment and Plan Plan: Assessment: 1. Acute kidney injury secondary to obstructive uropathy. Creatinine 15 on admission and is down to 1.06 today. 2. Hyperkalemia secondary to acute kidney injury and obstructive uropathy. Resolved. 3. Metabolic acidosis secondary to acute kidney injury. Resolved. 4. Hypernatremia from postobstructive diuresis. Improved. 5. Urinary retention. Has Trivedi catheter. Urology following. On Flomax. Plan: Stable for discharge from nephrology standpoint. Follow up outpatient in 1 week post discharge.
--- NOTE | 2023-03-02 11:38 | P.PN ---
Subjective Progress Note Date: 03/02/23 Patient is a 72-year-old male with Parkinson's, COPD, and hypertension who presented to the emergency department with multiple complaints including generalized weakness, confusion, and abnormal speech. Patient had developed urinary tract infection in [place] and was started on Cipro 8 days ago. He had worsened over the last 3 days and was seen in his PCPs office earlier on the day of admission and sent to the emergency department. In the emergency department the patient had urinary retention on bladder scan and had 1.8 L of urine removed upon Trivedi insertion. On arrival to the ER patient's vital signs were within normal limits. Laboratory analysis was remarkable for a white blood cell count of 20.8, hemoglobin 12.1, potassium 7.1, carbon dioxide 12, anion gap 19, BUN 207, creatinine 15.1, glucose of 108, urinalysis showed 84 white blood cells. Covid testing was negative. Troponin was mildly elevated at 0.46 in the ER he was given a dose of Rocephin. He was started on IV fluids. He was given potassium stabilizing agents. He was admitted for further monitoring. Urology and nephrology were consulted. He was having hallucinations and anxiety. His dopaminergic agents were held due to his hyperactivity. His fluids were transitioned to D5 as he developed hypernatremia. On 02/27/23 he developed gross hematuria. His renal function and sodium levels continue to improve. He was able to come off of IV fluids. His Parkinson's medications were restarted and his sensorium cleared. Patient seen and examined at bedside. No acute events overnight. He denies any chest pain, shortness of breath, abdominal pain, nausea, vomiting, diarrhea, constipation. He currently has urinary catheter in place. Vital signs reviewed General: nontoxic, no distress, appears at stated age Cardiovascular: S1S2 reg, no murmur, positive posterior tibial pulse bilateral, Lungs: CTA bilateral, no rhonchi, no rales , no accessory muscle use Abdominal: soft, nontender to palpation, no guarding, no appreciable organomegaly Ext: no gross muscle atrophy, no edema, no contractures Neuro: CN II-XI grossly intact, no focal neuro deficits, resting tremor noted in left arm and right leg Psych: Alert, oriented X 3, appropriate affect Assessment: Urinary tract infection, present prior to admission with sepsis- antibiotics completed Acute renal failure likely secondary to urinary retention Urinary retention status post insertion of Trivedi catheter with 1.8 L removed Type II NSTEMI, no active chest pain Acute metabolic encephalopathy with dystharia, resolved resolved: Hypernatremia Hyperkalemia Hypoglycemia High anion gap metabolic acidosis Chronic: COPD Hypertension Parkinson's disease Gross hematuria Hypernatremia, resolved Imaging: None additional Data Review: Vital signs from this morning temperature 98.6, pulse 72, respiratory rate 17, blood pressure 149/80, saturating at 98% on room air Laboratory analysis remarkable for sodium 142, chloride 110, creatinine 1.06 Blood sugars ranged between 116-137 Plan: -Continue entacapone 200 mg twice daily, amantadine 100 mg twice daily, and Sinemet 3 times daily -Urology following, Maintain catheter, can be removed in the office in approximately one week. -Outpatient cardiology follow-up given increased troponin, they have signed off -Nephrology following, cleared for discharge - Continue with Norvasc 5 mg daily - Lipitor 40 mg daily, Pepcid 20 mg daily -Continue with sliding scale insulin, no changes -Continue with Flomax DVT prophylaxis: Lovenox Anticipated discharge date: Today or tomorrow Anticipated discharge place: Subacute rehab Objective - Vital Signs Vital signs: Vital Signs Temp 98.6 F 03/02/23 08:59 Pulse 72 03/02/23 08:59 Resp 17 03/02/23 08:59 BP 149/80 03/02/23 08:59 Pulse Ox 98 03/02/23 09:17 FiO2 21 03/02/23 09:17 Intake & Output 03/01/23 03/02/23 03/02/23 18:59 06:59 18:59 Intake Total 1840 120 Output Total 2200 1125 250 Balance -360 -1125 -130 Intake: Oral 1840 120 Output: Urine 2200 1125 250 Uretheral (Trivedi) 1100 Other: Voiding Method Indwelling Catheter Indwelling Catheter Indwelling Catheter - Labs CBC & Chem 7: 03/01/23 08:09 03/02/23 09:08 Labs: Abnormal Lab Results - Last 24 Hours (Table) 03/01/23 03/01/23 03/01/23 Range/Units 12:12 16:56 20:11 Chloride (98-107) mmol/L BUN (9-20) mg/dL Glucose (74-99) mg/dL POC Glucose (mg/dL) 113 H 127 H 137 H (70-110) mg/dL 03/02/23 03/02/23 Range/Units 06:00 09:08 Chloride 110 H (98-107) mmol/L BUN 22 H (9-20) mg/dL Glucose 116 H (74-99) mg/dL POC Glucose (mg/dL) 122 H (70-110) mg/dL Microbiology - Last 24 Hours (Table) 02/25/23 17:45 Blood Culture - Preliminary Blood No Growth after 96 hours 02/25/23 17:30 Blood Culture - Preliminary Blood No Growth after 96 hours
[2023-03-02 11:54] LABS: Glucose,Whole Blood 111 mg/dL (70-110)
[2023-03-02 12:44] VITALS: BP 138/70; PULSE 74; RESP 16; TEMP 97.5
--- NOTE | 2023-03-02 13:28 | P.DS ---
Providers Date of admission: 02/26/23 00:57 Expected date of discharge: 03/02/23 Attending physician: Jeffrey Christianson MD Consults: 02/26/23 02:58 Consult Physician Urgent Consulting Provider: Ulysses Mcmahon Consult Reason/Comments: Hyperkalemia Do you want consulting provider notified?: Yes 02/26/23 05:12 Consult Physician Urgent Consulting Provider: Jorge L Schultz Consult Reason/Comments: Urinary retention Do you want consulting provider notified?: Yes, Notify in am 02/26/23 10:22 Consult Physician Routine Consulting Provider: Jose Alejandro Ureña Consult Reason/Comments: NSTEMI Do you want consulting provider notified?: Yes Primary care physician: Calvin Park [facility] Course: Discharge Diagnosis: Urinary tract infection, present prior to admission with sepsis Acute renal failure likely postobstructive Urinary retention requiring Trivedi catheter Type II NSTEMI Acute metabolic encephalopathy with dystharia Hypernatremia Hyperkalemia Hypoglycemia High anion gap metabolic acidosis COPD Hypertension Parkinson's disease Gross hematuria Hospital Course: Patient is a 72-year-old male with Parkinson's, COPD, and hypertension who presented to the emergency department with multiple complaints including generalized weakness, confusion, and abnormal speech. Patient had developed urinary tract infection in [place] and was started on Cipro 8 days ago. He had worsened over the last 3 days and was seen in his PCPs office earlier on the day of admission and sent to the emergency department. In the emergency department the patient had urinary retention on bladder scan and had 1.8 L of urine removed upon Trivedi insertion. On arrival to the ER patient's vital signs were within normal limits. Laboratory analysis was remarkable for a white blood cell count of 20.8, hemoglobin 12.1, potassium 7.1, carbon dioxide 12, anion gap 19, BUN 207, creatinine 15.1, glucose of 108, urinalysis showed 84 white blood cells. Covid testing was negative. Troponin was mildly elevated at 0.46 in the ER he was given a dose of Rocephin. He was started on IV fluids. He was given potassium stabilizing agents. He was admitted for further monitoring. Urology and nephrology were consulted. He was having hallucinations and anxiety. His dopaminergic agents were held due to his hyperactivity. His fluids were transitioned to D5 as he developed hypernatremia. On 02/27/23 he developed gross hematuria. His renal function and sodium levels continue to improve. He was able to come off of IV fluids. His Parkinson's medications were restarted and his sensorium cleared. Patient to follow-up with urology in 1 week to discontinue urinary catheter. Also needs outpatient cardiology follow-up for increased troponin, and nephrology follow-up 1 week. Patient seen and examined at bedside. Vital signs reviewed and stable. General: nontoxic, no distress, appears at stated age Cardiovascular: S1S2 reg, no murmur, positive posterior tibial pulse bilateral, Lungs: CTA bilateral, no rhonchi, no rales , no accessory muscle use Abdominal: soft, nontender to palpation, no guarding, no appreciable organomegaly Ext: no gross muscle atrophy, no edema, no contractures Neuro: CN II-XI grossly intact, no focal neuro deficits, resting tremor noted in left arm and right leg Psych: Alert, oriented X 3, appropriate affect A total of 33 minutes of time were spent preparing this complex discharge summary. Patient was discharged on 03/02/23 at 13:25. Patient Condition at Discharge: Stable Plan - Discharge Summary Discharge Rx Participant: Yes New Discharge Prescriptions: New bisacodyL [Dulcolax] 5 mg PO DAILY PRN tab PRN Reason: Constipation amLODIPine [Norvasc] 5 mg PO DAILY tab Famotidine [Pepcid] 20 mg PO DAILY tab Tamsulosin [Flomax] 0.4 mg PO PC-BRKFST cap Atorvastatin [Lipitor] 40 mg PO DAILY tab Continue Carbidopa-Levodopa ER 50-200Mg [Sinemet CR 50-200 mg] 1 tab PO TID amantadine HCL [Symmetrel] 100 mg PO BID Entacapone 200 mg PO TID Discontinued amLODIPine BESYLATE/BENAZEPRIL [amLODIPine BESYLATE/BENAZEPRIL 5-10 mg] 1 cap PO DAILY Ciprofloxacin HCl [Cipro] 500 mg PO BID Discharge Medication List Carbidopa-Levodopa ER 50-200Mg [Sinemet CR 50-200 mg] 1 tab PO TID 10/20/17 [History] amantadine HCL [Symmetrel] 100 mg PO BID 10/20/17 [History] Entacapone 200 mg PO TID 06/25/22 [History] Atorvastatin [Lipitor] 40 mg PO DAILY tab 03/02/23 [Rx] Famotidine [Pepcid] 20 mg PO DAILY tab 03/02/23 [Rx] Tamsulosin [Flomax] 0.4 mg PO PC-BRKFST cap 03/02/23 [Rx] amLODIPine [Norvasc] 5 mg PO DAILY tab 03/02/23 [Rx] bisacodyL [Dulcolax] 5 mg PO DAILY PRN tab 03/02/23 [Rx] Follow up Appointment(s)/Referral(s): Roberto Allred MD [STAFF PHYSICIAN] - 1 Week Calvin Roca MD [Primary Care Provider] - 1-2 days Ulysses Mcmahon DO [STAFF PHYSICIAN] - 1 Week Anjum Colon MD [STAFF PHYSICIAN] - 1 Week Patient Instructions/Handouts: Acute Kidney Injury (DC), Urinary Retention in Men (GEN), Urinary Tract Infection in Men (DC), Sepsis (DC) Activity/Diet/Wound Care/Special Instructions: Please follow up with urology in 1 week for removal of catheter. Please follow up with nephrology and cardiology for further work up. Discharge Disposition: TRANSFER TO SNF/ECF
[2023-03-02 13:57] VITALS: BMI 18.7
== END 2023-03-02 16:21 | DRG 871 ==
LOC: EC 15:22 → 3SCARD 02-26 00:57
PROVIDERS: ADMIT Internal Medicine; ATTEND Internal Medicine
DX: A41.9 Sepsis, unspecified organism (principal); G93.41 Metabolic encephalopathy; I21.A1 Myocardial infarction type 2; N18.6 End stage renal disease; E87.0 Hyperosmolality and hypernatremia; E87.20 Acidosis, unspecified; N17.9 Acute kidney failure, unspecified; N39.0 Urinary tract infection, site not specified; I12.0 Hypertensive chronic kidney disease with stage 5 chronic kidney disease or end stage renal disease; R65.20 Severe sepsis without septic shock; J44.9 Chronic obstructive pulmonary disease, unspecified; N13.9 Obstructive and reflux uropathy, unspecified; Z96.651 Presence of right artificial knee joint; R47.1 Dysarthria and anarthria; I08.1 Rheumatic disorders of both mitral and tricuspid valves; N28.1 Cyst of kidney, acquired; Z20.822 Contact with and (suspected) exposure to COVID-19; G20 Parkinson's disease; E16.2 Hypoglycemia, unspecified; E87.5 Hyperkalemia; R31.0 Gross hematuria; Z99.2 Dependence on renal dialysis; Z87.440 Personal history of urinary (tract) infections; Z79.899 Other long term (current) drug therapy
CPT/HCPCS: 36415; 51798; 70450; 76770; 80048; 80053; 81001; 82140; 83605; 83735; 84484; 85025; 85027; 85610; 85730; 87040; 87086; 87635; 93005; 93306; 94640; 94760; 96361; 96365; 96368; 96375; 99291

== ENCOUNTER 2023-03-19 18:46 | Emergency (ER) | payer MEDICARE ==
--- NOTE | 2023-03-19 20:22 | ED ---
General Adult HPI - General Chief complaint: Recheck/Abnormal Lab/Rx Stated complaint: Needs recathed Time Seen by Provider: 03/19/23 19:18 Source: patient Mode of arrival: wheelchair Limitations: no limitations - History of Present Illness Initial comments: Patient is 72-year-old male who presents to the emergency department for urinary retention. Patient had Trivedi catheter in due to retention it was taken out by Dr. Colon today. Patient states he has been unable to urinate since it was taken out this morning. He reports suprapubic discomfort. Denies fever, chills, nausea, vomiting, back pain. No chest pain or shortness breath. - Related Data Home Medications Medication Instructions Recorded Confirmed Carbidopa-Levodopa ER 50-200Mg 1 tab PO TID 10/20/17 02/25/23 [Sinemet CR 50-200 mg] amantadine HCL [Symmetrel] 100 mg PO BID 10/20/17 02/25/23 Entacapone 200 mg PO TID 06/25/22 02/25/23 Previous Rx's Medication Instructions Recorded Atorvastatin [Lipitor] 40 mg PO DAILY tab 03/02/23 Famotidine [Pepcid] 20 mg PO DAILY tab 03/02/23 Tamsulosin [Flomax] 0.4 mg PO PC-BRKFST cap 03/02/23 amLODIPine [Norvasc] 5 mg PO DAILY tab 03/02/23 bisacodyL [Dulcolax] 5 mg PO DAILY PRN tab 03/02/23 Allergies Allergy/AdvReac Type Severity Reaction Status Date / Time No Known Allergies Allergy Verified 03/19/23 19:16 Review of Systems ROS Statement: Those systems with pertinent positive or pertinent negative responses have been documented in the HPI. ROS Other: All systems not noted in ROS Statement are negative. Past Medical History Past Medical History: COPD, Hypertension, Neurologic Disorder, Osteoarthritis (OA) Additional Past Medical History / Comment(s): Parkinson's-tremors left side History of Any Multi-Drug Resistant Organisms: None Reported Past Surgical History: Orthopedic Surgery Additional Past Surgical History / Comment(s): arthroscopy knee,colonoscopies, TOTAL RIGHT KNEE ARTHROPLASTY Past Anesthesia/Blood Transfusion Reactions: No Reported Reaction Past Psychological History: No Psychological Hx Reported Smoking Status: Never smoker Past Alcohol Use History: Occasional Past Drug Use History: None Reported - Past Family History Father Family Medical History: Cancer General Exam Limitations: no limitations General appearance: alert, in no apparent distress Head exam: Present: atraumatic, normocephalic, normal inspection Eye exam: Present: normal appearance, PERRL, EOMI. Absent: scleral icterus, conjunctival injection, periorbital swelling Cardiovascular Exam: Present: regular rate, normal rhythm, normal heart sounds. Absent: systolic murmur, diastolic murmur, rubs, gallop, clicks GI/Abdominal exam: Present: soft, tenderness (mild suprapubic ), normal bowel sounds. Absent: distended, guarding, rebound, rigid Neurological exam: Present: alert, oriented X3, CN II-XII intact Psychiatric exam: Present: normal affect, normal mood Skin exam: Present: warm, dry, intact, normal color. Absent: rash Course Vital Signs 03/19/23 03/19/23 19:14 20:35 Temperature 98.3 F 98.1 F Pulse Rate 95 90 Respiratory 20 16 Rate Blood Pressure 124/70 136/72 O2 Sat by Pulse 98 99 Oximetry Medical Decision Making - Medical Decision Making Was pt. sent in by a medical professional or institution (, PA, COPIER TECHNICIAN, urgent care, hospital, or halfway...) When possible be specific @ -No Did you speak to anyone other than the patient for history (EMS, parent, family, police, friend...)? What history was obtained from this source @ -No Did you review nursing and triage notes (agree or disagree)? Why? @ -I reviewed and agree with nursing and triage notes Were old charts reviewed (outside hosp., previous admission, EMS record, old EKG, old radiological studies, urgent care reports/EKG's, halfway records)? Report findings @ -No old charts were reviewed Differential Diagnosis (chest pain, altered mental status, abdominal pain women, abdominal pain men, vaginal bleeding, weakness, fever, dyspnea, syncope, headache, dizziness, GI bleed, back pain, seizure, CVA, palpatations, mental health)? @ -Urinary retention, kidney stone, Trivedi catheter problem. This list is not meant to be all-inclusive EKG interpreted by me (3pts min.). @ -As above X-rays interpreted by me (1pt min.). @ -None done CT interpreted by me (1pt min.). @ -None done U/S interpreted by me (1pt. min.). @ -None done What testing was considered but not performed or refused? (CT, X-rays, U/S, labs)? Why? @ -None What meds were considered but not given or refused? Why? @ -None Did you discuss the management of the patient with other professionals (professionals i.e. Dr., PA, COPIER TECHNICIAN, lab, RT, psych nurse, nephrology social worker, core drilling supervisor, teacher, asset protection officer, immigration case worker)? Give summary @ -No Was smoking cessation discussed for >3mins.? @ -No Was critical care preformed (if so, how long)? @ -No Were there social determinants of health that impacted care today? How? (Homelessness, low income, unemployed, alcoholism, drug addiction, transportation, low edu. Level, literacy, decrease access to med. care, assisted, rehab)? @ -No Was there de-escalation of care discussed even if they declined (Discuss DNR or withdrawal of care, Hospice)? DNR status @ -No What co-morbidities impacted this encounter? (DM, HTN, Smoking, COPD, CAD, Cancer, CVA, ARF, Chemo, Hep., AIDS, mental health diagnosis, sleep apnea, morbid obesity)? @ -None Was patient admitted / discharged? Hospital course, mention meds given and route, prescriptions, significant lab abnormalities, going to OR and other pertinent info. @ -Patient presenting with urinary retention. No fever, vomiting. Trivedi catheter placed with 1200 mL output. Patient feeling much better you will be discharged with Trivedi catheter in place. He will follow up with Dr. Colon Undiagnosed new problem with uncertain prognosis? @ -No Drug Therapy requiring intensive monitoring for toxicity (Heparin, Nitro, Insulin, Cardizem)? @ -No Were any procedures done? @ -No Diagnosis/symptom? @ -Urinary retention Acute, or Chronic, or Acute on Chronic? @ -Acute Uncomplicated (without systemic symptoms) or Complicated (systemic symptoms)? @ -Uncomplicated Side effects of treatment? @ -[No] Exacerbation, Progression, or Severe Exacerbation? @ -[No] Poses a threat to life or bodily function? How? (Chest pain, USA, VT, pneumonia, PE, COPD, DKA, ARF, appy, cholecystitis, CVA, Diverticulitis, Homicidal, Suicidal, threat to staff... and all critical care pts) @ -[No] Dr. Bledsoe is my attending Disposition Clinical Impression: Urinary retention Disposition: HOME SELF-CARE Condition: Good Instructions (If sedation given, give patient instructions): Trivedi Catheter Placement and Care (ED), How to Change a Catheter Drainage Bag (DC) Additional Instructions: Follow-up with Dr. Colon in 1-2 days. Return to emergency department if you experience new, concerning, or worsening symptoms. Is patient prescribed a controlled substance at d/c from ED?: No Referrals: Calvin Roca MD [Primary Care Provider] - 1-2 days
[2023-03-19 20:37] VITALS: BP 136/72; PULSE 90; RESP 16; TEMP 98.1
== END 2023-03-19 20:37 | disposition home or self-care (01) ==
LOC: EC 18:46
DX: R33.9 Retention of urine, unspecified (principal); I10 Essential (primary) hypertension; J44.9 Chronic obstructive pulmonary disease, unspecified; M19.90 Unspecified osteoarthritis, unspecified site; Z79.899 Other long term (current) drug therapy
CPT/HCPCS: 51702; 99283